=== PATIENT | male | born 1965 | race Caucasian/White ===

== ENCOUNTER 2020-08-02 14:40 | Outpatient (REF) | payer OTHER, SELFPAY ==
[2020-08-02 16:32] LABS: MANUAL DIFF FLAG NO
[2020-08-02 16:36] LABS: Basophils Absolute Auto 0.1 X10*3/uL (0.0-0.2); Basophils Percent Auto 0.7 % (0-2); Eosinophils Absolute Auto 0.1 X10*3/uL (0.0-0.4); Eosinophils Percent Auto 1.6 % (0-4); Hematocrit 45.6 % (42-52); Hemoglobin 15.1 g/dl (14.0-18.0); Imm Gran Abs Auto 0.01 X10*3/uL (0.00-0.03); Imm Gran Pct Auto 0.1 % (0.0-0.4); Lymphocytes Absolute Auto 2.9 X10*3/uL (1.2-4.9); Lymphocytes Percent Auto 37.3 % (20-40); Mean Corpuscular HGB Conc 33.1 g/dl (31.0-36.0); Mean Corpuscular Volume 90.7 fL (80-98); Mean Platelet Volume 9.7 fL (9.4-12.4); Monocytes Absolute Auto 0.7 X10*3/uL (0.1-1.2); Neutrophils Absolute Auto 3.9 X10*3/uL (2.0-8.3); Neutrophils Percent Auto 51.3 % (45-73); Platelet Count 196 X10*3/uL (160-400); Red Blood Count 5.03 X10*6/uL (4.60-5.80); Red Cell Distribution Width 11.9 % (11.0-16.0); White Blood Count 7.7 X10*3/uL (4.8-10.8)
[2020-08-02 16:44] LABS: Estimated Average Glucose 120 mg/dL; Hemoglobin A1c % 5.8 %
[2020-08-02 17:01] LABS: Alanine Aminotransferase 65 U/L (0-40); Albumin Level 4.2 g/dL (3.5-5.0); Alkaline Phosphatase 55 U/L (39-117); Anion Gap 10 (12-20); Aspartate Amino Transferase 46 U/L (5-37); Bilirubin Total 0.6 mg/dL (0.0-1.0); Blood Urea Nitrogen 15 mg/dL (9-16); Calcium 9.2 mg/dL (8.4-10.2); Carbon Dioxide 32 mmol/L (22-29); Chloride 101 mmol/L (96-108); Estimated Glomerular Filt Rate > 60; Glucose Random 70 mg/dL (60-115); Potassium 4.6 mmol/l (3.3-5.1); Sodium 138 mmol/L (135-145); Total Protein 6.8 g/dL (6.5-8.0)
[2020-08-02 17:21] LABS: TSH reflex Free T4 0.95 mIU/mL (0.32-4.0)
== END 2020-08-02 14:41 | disposition home or self-care (01) ==
LOC: HO.HMGCLDS 14:40
PROVIDERS: PCP Hospitalist; Visit Provider Hospitalist
DX: R42 Dizziness and giddiness (principal)
CPT/HCPCS: 36415; 80053; 83036; 84443; 85025

== ENCOUNTER 2021-02-20 07:54 | Outpatient (REF) | payer OTHER, SELFPAY ==
--- NOTE | ~2021-02-20 | XR_ITS ---
EXAMINATION: XR SHOULDER, LEFT CLINICAL INFORMATION: Pain COMPARISON: None TECHNIQUE: Three views of the left shoulder. FINDINGS: Bone alignment is normal. No fracture or dislocation is seen. There are small osteophytes at the glenohumeral joint. There are osteophytes and joint space narrowing at the acromioclavicular joint. There are surgical clips project over the left lower neck. Soft tissues are otherwise unremarkable. 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
== END 2021-02-20 07:55 | disposition home or self-care (01) ==
LOC: HO.HOSX 07:54
PROVIDERS: Visit Provider Orthopaedic Surgery
DX: M75.42 Impingement syndrome of left shoulder (principal)
CPT/HCPCS: 20610; 73030; J1040

== ENCOUNTER 2021-11-08 16:59 | Emergency (ER) | payer OTHER, SELFPAY ==
--- NOTE | ~2021-11-08 | XR_ITS ---
EXAMINATION: LEFT HAND AND WRIST. CLINICAL INFORMATION: Fall. COMPARISON: None TECHNIQUE: 3 views. FINDINGS: No acute fracture. No dislocation. Joint spaces are normal. No soft tissue abnormality. XR/XR hand wrist LT IMPRESSION: Normal left hand and wrist.
--- NOTE | ~2021-11-08 | XR_ITS ---
EXAMINATION: XR SCAPULA, RIGHT CLINICAL INFORMATION: Fall on ice. COMPARISON: None TECHNIQUE: AP and scapular Y views of the right scapula. FINDINGS: No acute fractures or malalignment. Mild osteoarthritis of the right acromioclavicular joint. No unexpected radiopaque foreign bodies. XR/XR scapula RT IMPRESSION: No acute fractures or malalignment.
--- NOTE | ~2021-11-08 | XR_ITS ---
EXAMINATION: XR RIBS, RIGHT CLINICAL INFORMATION: Fall with right-sided rib pain. COMPARISON: None TECHNIQUE: 3 views of the right ribs were obtained. FINDINGS: Normal appearance of the cardiomediastinal silhouette. No focal airspace opacities, pleural effusions or pneumothorax. Indeterminate surgical clips overlying the left lower neck and left lung apex. No evidence of acutely displaced rib fractures. XR/XR ribs RT min 3V w CXR1V IMPRESSION: No acute cardiopulmonary findings. No acutely displaced rib fractures.
[2021-11-08 17:05] VITALS: BP 112/71; PULSE 68; RESP 16; TEMP 36.6; O2SAT 97; BMI 35.3
--- NOTE | 2021-11-08 18:50 | ED_ITS ---
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 Denies symptoms prior to fall. Reports slipped and fell and landed on back, denies head trauma or LOC. Was ambulatory after incident. Denies incontinence/retention, neck pain, vision change/loss, nausea/vomiting, abdominal pain, numbness/tingling, weakness. Adria es taking anticoagulation. complaint: fall Onset (ago): hour(s) Related Data Previous Rx's Medication Instructions Recorded acetaminophen 500 mg tablet 500 mg PO Q6H PRN #20 tab 11/08/21 (Tylenol Extra Strength) cyclobenzaprine 5 mg tablet 5 mg PO Q8H PRN 5 Days #14 tab 11/08/21 lidocaine 5 % topical patch 1 patch TOPICAL DAILY PRN #30 ea 11/08/21 (Lidoderm) MDD remove after 12 hours naproxen 500 mg tablet 500 mg PO BID PRN 10 Days #20 tab 11/08/21 Allergies Allergy/AdvReac Type Severity Reaction Status Date / Time No Known Allergies Allergy Verified 02/20/21 13:50 Review of Systems Review of Systems: Constitutional:No Fever, No Chills, No Fatigue, No Malaise ENT/Mouth: No Hearing loss, No Ear Pain, No sore throat, No Rhinorrhea, No Swall owing Difficulty Eyes: No Eye Pain, No Swelling, No Redness, No Vision Changes Cardiovascular: + Chest Wall Pain, No SOB, No Edema, No Palpitations Respiratory: No Cough, No Dyspnea Gastrointestinal: No Nausea, No Vomiting, No Diarrhea, No Constipation, No Abdominal pain Genitourinary: No Dysuria, No Urinary Frequency, No Hematuria, No Urinary Incontinence/retention, No Urgency, No Flank Pain Musculoskeletal: + joint pain, No Myalgias, + Joint Swelling Skin: No Skin Lesions, No rash Neuro: No Weakness, No Numbness, No Paresthesias, No Loss of Consciousness, No Dizziness, No Headache Yes all other systems are reviewed and are negative Neurologic: Denies Abnormal speech present [facility] Past Medical History Attestation statement: The following information was validated with the patient. 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 Physical Exam Vital Signs: Vital Signs: Last Vital Signs Temp 97.8 F 11/08/21 17:05 Pulse 68 11/08/21 17:05 Resp 16 11/08/21 17:05 BP 112/71 11/08/21 17:05 Pulse Ox 97 11/08/21 17:05 BMI result Body Mass Index 35.3 Const: Other: Appears in pain General: cooperative Orientation/consciousness: patient oriented x3 Limitations: no limitations HENMT: Head: Yes normal to inspection Ears: hearing grossly normal bilaterally General nose exam: Normal external nose present Face and sinus: Yes normal facial exam Eyes: General: appearance normal, both eyes and all related structures EOM: EOMs intact bilaterally Neck: Other: No midline cervical spinous tenderness/double for deformity Neck: Yes normal visual inspection and Yes no meningeal signs Chest: Other: + right-sided anterior lateral chest wall tenderness to palpation reproducing subjective complaint. Right scapular tenderness to palpation Chest palpation & inspection: no crepitus and tenderness Resp: Effort & Inspection: normal respiratory effort and no respiratory distress Auscultation: clear to auscultation bilaterally Cardio: Rate: regular rate Heart sounds: S1 normal heart sound present and S2 normal heart sound present GI: Inspection: Yes normal to inspection Palpation (GI): Soft to palpation, nontender, no guarding and not rigid Back/Spine/Pelvis: Other: No midline thoracic/lumbar spinous tenderness/step- off or deformity Skin: Rashes: no rashes Wounds: no wounds Neuro: General: patient oriented x3, gait normal, tone normal, moves all extremities, no meningeal signs, no focal motor deficits and CN's II-XI intact bilaterally Cognition (Neuro): normal cognition Speech: No Abnormal speech present Gait exam (Neuro): Normal gait present Motor exam (neuro): 5/5 motor strength present throughout Extrem: Other: Left wrist with mild tenderness. No snuffbox tenderness to palpation. Full range of motion intact. Left hand nontender. Full range of motion intact. Eapguv-du-fssjt opposition intact. Neurovascular intact General: Yes normal to inspection Course Course Course Narrative: -1909--XR ribs RT min 3V w CXR1V IMPRESSION: No acute cardiopulmonary findings. No acutely displaced rib fractures. XR scapula RT IMPRESSION: No acute fractures or malalignment. XR hand wrist LT IMPRESSION: Normal left hand and wrist.? >> results discussed with patient including recent signs and symptoms and strict return precautions. 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 On exam vital signs stable, NAD/nontoxic, physical exam as above. Concern for rib fracture/contusion vs wrist sprain/fracture vs back strain/MSK pain. Low concern for cauda equina/cord compression, or epidural abscess Plan: X-rays, pain control Differential Diagnosis Differential diagnosis: Likely fracture Medical Records Attestation: I reviewed the patient's medical records. Lab Data Attestation: I reviewed the patient's lab results. Discharge Plan Discharge Clinical Impression: Back pain, Pain of right scapula, Acute wrist pain, Fall Patient Disposition: Home, Self-Care Instructions: Acute Low Back Pain (ED) Additional Instructions: your x-rays were unremarkable Your pain is likely musculoskeletal Flexeril is a muscle relaxer, take at night as it makes you drowsy, do not drive, drink alcohol, or operate machinery while taking it Naproxen as an anti-inflammatory / pain medication, take with food Lidoderm patches are numbing patches, apply to painful area In addition take Tylenol at home If symptoms persist or worsen, pain becomes unbearable, you developed urinary retention or incontinence, or weakness return to the ED Prescriptions: New acetaminophen [Tylenol Extra Strength] 500 mg tablet 500 mg PO Q6H PRN (Reason: pain or fever) Qty: 20 RF: 0 lidocaine [Lidoderm] 5 % adhesive patch,medicated 1 patch topical DAILY MDD remove after 12 hours PRN (Reason: pain) Qty: 30 RF: 0 naproxen 500 mg tablet 500 mg PO BID PRN (Reason: pain) 10 Days Qty: 20 RF: 0 cyclobenzaprine 5 mg tablet 5 mg PO Q8H PRN (Reason: pain (scale score 7-10)) 5 Days Qty: 14 RF: 0 Referrals: Neville Boyce [Primary Care Provider] - 5 days
[2021-11-08] MEDS: Cyclobenzaprine HCl 10 MG TABLET PO (19:20)
[2021-11-08] MEDS: Acetaminophen 325 MG TABLET 650 MG PO (19:20)
[2021-11-08] MEDS: Ketorolac Tromethamine 60 MG/2 ML VIAL IM (19:21)
== END 2021-11-08 19:55 | disposition home or self-care (01) ==
PROVIDERS: Emergency Provider Internal Medicine; PCP Hospitalist
DX: Z04.3 Encounter for examination and observation following other accident (principal); M54.6 Pain in thoracic spine; M25.532 Pain in left wrist; M25.512 Pain in left shoulder; R07.81 Pleurodynia
CPT/HCPCS: 71101; 73010; 73110; 73130; 96372; 99284; J1885

== ENCOUNTER 2022-01-02 08:00 | Outpatient (RCR) | payer OTHER, SELFPAY | END 2022-01-30 08:03 | disposition home or self-care (01) | LOC: HO.PTCHIC 08:00 | PROVIDERS: PCP Hospitalist; Visit Provider Nurse Practitioner Family | DX: M54.6 Pain in thoracic spine (principal) | CPT/HCPCS: 97014; 97110; 97140; 97162 ==

== ENCOUNTER 2022-01-11 10:43 | Outpatient (REF) | payer OTHER, SELFPAY ==
--- NOTE | ~2022-01-11 | XR_ITS ---
EXAMINATION: XR FOOT, RIGHT XR FOOT, LEFT CLINICAL INFORMATION: Right foot pain. Left foot pain. COMPARISON: None TECHNIQUE: AP, oblique, and lateral views of the right and left foot. FINDINGS: RIGHT FOOT: No acute fracture or dislocation. Small talonavicular marginal osteophytes. Along the medial aspect of the second metatarsal head there is a smooth, corticated defect measuring 1.0 cm in craniocaudal dimension, which may represent normal variation. Small plantar and dorsal calcaneal enthesophytes. LEFT FOOT: No acute fracture or dislocation. No osseous erosion. Small plantar and dorsal calcaneal enthesophytes. Bipartite tibial hallux sesamoid. Mild joint space narrowing with small marginal osteophytes at the hallux sesamoids. XR/XR foot RT min 3V IMPRESSION: Right foot: No acute osseous abnormality. Mild talonavicular osteoarthritis. Small plantar and dorsal calcaneal spurs. Left foot: No acute osseous abnormality. Mild degenerative arthritis at the hallux sesamoids. Small plantar and dorsal calcaneal spurs.
--- NOTE | ~2022-01-11 | XR_ITS ---
EXAMINATION: XR FOOT, RIGHT XR FOOT, LEFT CLINICAL INFORMATION: Right foot pain. Left foot pain. COMPARISON: None TECHNIQUE: AP, oblique, and lateral views of the right and left foot. FINDINGS: RIGHT FOOT: No acute fracture or dislocation. Small talonavicular marginal osteophytes. Along the medial aspect of the second metatarsal head there is a smooth, corticated defect measuring 1.0 cm in craniocaudal dimension, which may represent normal variation. Small plantar and dorsal calcaneal enthesophytes. LEFT FOOT: No acute fracture or dislocation. No osseous erosion. Small plantar and dorsal calcaneal enthesophytes. Bipartite tibial hallux sesamoid. Mild joint space narrowing with small marginal osteophytes at the hallux sesamoids. XR/XR foot LT min 3V IMPRESSION: Right foot: No acute osseous abnormality. Mild talonavicular osteoarthritis. Small plantar and dorsal calcaneal spurs. Left foot: No acute osseous abnormality. Mild degenerative arthritis at the hallux sesamoids. Small plantar and dorsal calcaneal spurs.
== END 2022-01-11 10:44 | disposition home or self-care (01) ==
LOC: HO.HMGCX 10:43
PROVIDERS: Visit Provider Internal Medicine
DX: M79.671 Pain in right foot (principal); M79.672 Pain in left foot
CPT/HCPCS: 73630

== ENCOUNTER 2022-03-12 13:38 | Outpatient (REF) | payer OTHER, SELFPAY ==
[2022-03-12 15:51] LABS: Hematocrit 41.7 % (42.0-52.0); Mean Corpuscular HGB Conc 33.6 g/dl (31.0-36.0); Mean Corpuscular Hemoglobin 30.3 pg (27.0-33.0); Mean Corpuscular Volume 90.3 fL (80.0-98.0); Mean Platelet Volume 9.5 fL (9.4-12.4); Platelet Count 168 X10*3/uL (160-400); Red Blood Count 4.62 X10*6/uL (4.60-5.80); Red Cell Distribution Width 12.4 % (11.0-16.0); White Blood Count 7.8 X10*3/uL (4.8-10.8)
[2022-03-12 16:42] LABS: Alanine Aminotransferase 78 U/L (0-40); Albumin Level 4.1 g/dL (3.5-5.0); Alkaline Phosphatase 58 U/L (39-117); Anion Gap 12 (12-20); Aspartate Amino Transferase 49 U/L (5-37); Bilirubin Total 0.6 mg/dL (0.0-1.0); Blood Urea Nitrogen 20 mg/dL (9-16); Calcium 9.6 mg/dL (8.4-10.2); Carbon Dioxide 28 mmol/L (22-29); Chloride 108 mmol/L (96-108); Estimated Glomerular Filt Rate > 60; Glucose Random 74 mg/dL (60-115); Potassium 4.8 mmol/L (3.3-5.1); Sodium 143 mmol/L (135-145); Total Protein 6.8 g/dL (6.5-8.0)
== END 2022-03-12 13:39 | disposition home or self-care (01) ==
LOC: HO.LAB 13:38
PROVIDERS: Visit Provider Nurse Practitioner Family
DX: K75.81 Nonalcoholic steatohepatitis (NASH) (principal)
CPT/HCPCS: 36415; 80053; 85027

== ENCOUNTER 2022-08-23 12:56 | Outpatient (REF) | payer OTHER, SELFPAY ==
[2022-08-23 13:57] LABS: MANUAL DIFF FLAG NO
[2022-08-23 14:04] LABS: Basophils Percent Auto 0.5 % (0-2); Eosinophils Absolute Auto 0.1 X10*3/uL (0.0-0.4); Eosinophils Percent Auto 1.4 % (0-4); Hematocrit 41.4 % (42.0-52.0); Imm Gran Abs Auto 0.02 X10*3/uL (0.00-0.03); Imm Gran Pct Auto 0.3 % (0.0-0.4); Lymphocytes Absolute Auto 2.7 X10*3/uL (1.2-4.9); Lymphocytes Percent Auto 43.1 % (20-40); Mean Corpuscular HGB Conc 33.8 g/dl (31.0-36.0); Mean Corpuscular Hemoglobin 30.2 pg (27.0-33.0); Mean Corpuscular Volume 89.4 fL (80.0-98.0); Mean Platelet Volume 9.7 fL (9.4-12.4); Monocytes Absolute Auto 0.5 X10*3/uL (0.1-1.2); Monocytes Percent Auto 7.6 % (2-11); Neutrophils Percent Auto 47.1 % (45-73); Platelet Count 181 X10*3/uL (160-400); Red Blood Count 4.63 X10*6/uL (4.60-5.80); Red Cell Distribution Width 11.8 % (11.0-16.0); White Blood Count 6.3 X10*3/uL (4.8-10.8)
[2022-08-23 14:27] LABS: Alanine Aminotransferase 54 U/L (0-40); Albumin Level 4.1 g/dL (3.5-5.0); Alkaline Phosphatase 57 U/L (39-117); Anion Gap 15 (12-20); Aspartate Amino Transferase 41 U/L (5-37); Bilirubin Direct 0.2 mg/dL (0.0-0.5); Bilirubin Total 0.6 mg/dL (0.0-1.0); Blood Urea Nitrogen 17 mg/dL (9-16); Calcium 9.1 mg/dL (8.4-10.2); Carbon Dioxide 23 mmol/L (22-29); Chloride 108 mmol/L (96-108); Estimated Glomerular Filt Rate > 60; Glucose Random 75 mg/dL (60-115); Potassium 4.3 mmol/L (3.3-5.1); Sodium 142 mmol/L (135-145); Total Protein 6.5 g/dL (6.5-8.0)
[2022-08-23 14:35] LABS: TSH reflex Free T4 0.48 uIU/mL (0.32-4.0)
[2022-08-23 14:48] LABS: Vitamin B12 351 pg/mL (200-900)
[2022-08-23 15:05] LABS: Estimated Average Glucose 120 mg/dL; Hemoglobin A1c % 5.8 %
== END 2022-08-23 12:57 | disposition home or self-care (01) ==
LOC: HO.HMGCLDS 12:56
PROVIDERS: PCP Nurse Practitioner Family; Visit Provider Nurse Practitioner Family
DX: R53.83 Other fatigue (principal); K75.81 Nonalcoholic steatohepatitis (NASH); E66.9 Obesity, unspecified
CPT/HCPCS: 36415; 80048; 80076; 82607; 83036; 84443; 85025

== ENCOUNTER 2022-08-27 08:19 | Day surgery (SDC) | payer OTHER, SELFPAY ==
[2022-08-21 09:40] VITALS: BMI 36.4
--- NOTE | 2022-08-26 11:53 | HO.ANESPROP2 ---
Documented by User: Yola Gaytan NP 08/26/22 11:53 HPI - Anesthesia Eval Consult details Narrative: 56yo M for Colonoscopy [facility] Active Problems Active Problems: All Active Problems (Updated 03/12/22 @ 14:33 by STEPHANIE Vázquez) Rotator cuff impingement syndrome of left shoulder (Acute) Past Medical History Medical History Aneurysm Nonalcoholic steatohepatitis (ROOT) Surgical History Surgical History History of knee replacement Social History Social History Alcohol intake: current Alcohol intake frequency: holidays/special occasions only Patient Tobacco Use Status: Never used Tobacco Are you DNR?: No Advance Directives: No Advance Directives Information Provided: Yes Nutrition Risks: No Nutritional Risk Current occupational status: employed 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, 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 Meds Allergies Allergy/AdvReac Type Severity Reaction Status Date / Time No Known Allergies Allergy Verified 03/12/22 13:56 Home Medications Medication Instructions Recorded Confirmed Last Taken Type magnesium 1 tab PO DAILY 08/27/22 08/27/22 08/26/22 History multivitamin 1 tab PO DAILY 08/27/22 08/27/22 08/26/22 History Exam Exam Date and Time: August 26, 2022 1153 Height,Weight and Vital Signs: Height 6 ft 2 in Weight 128.82 kg Assessment and Plan Assessment Anesthesia Assessment: Chart Reviewed Documented by User: Racquel Staton MD 08/27/22 09:06 [facility] Active Problems Active Problems: All Active Problems (Updated 03/12/22 @ 14:33 by STEPHANIE Vázquez) Rotator cuff impingement syndrome of left shoulder (Acute) DICK USES CPAP nightly Past Medical History Medical History Aneurysm Nonalcoholic steatohepatitis (ROOT) Surgical History Surgical History History of knee replacement History of Problems with Anesthesia: No Social History Social History Alcohol intake: current Alcohol intake frequency: holidays/special occasions only Patient Tobacco Use Status: Never used Tobacco Are you DNR?: No Advance Directives: No Advance Directives Information Provided: Yes Nutrition Risks: No Nutritional Risk Current occupational status: employed 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, 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 Meds Allergies Allergy/AdvReac Type Severity Reaction Status Date / Time No Known Allergies Allergy Verified 03/12/22 13:56 Home Medications Medication Instructions Recorded Confirmed Last Taken Type magnesium 1 tab PO DAILY 08/27/22 08/27/22 08/26/22 History multivitamin 1 tab PO DAILY 08/27/22 08/27/22 08/26/22 History Exam Airway Mallampati Class: III TM Dist: >3cm Neck ROM: Full Loose/Missing/Broken Teeth: No Heart: RRR Lungs: CTA Assessment and Plan Assessment Anesthesia Assessment: Anesthesia Plan Discussed Final Anesthetic Review History of Problems with Anesthesia: No NPO: Yes ASA Class: III Final Preanesthetic Review: Meds/Allgs Chart Reviewed, Consent Obtained/Reviewed and Anes Risks/Benef Reviewed Patient Risk: Intermediate Procedure Risk: Low Anesthetic Plan Anesthetic Plan: MAC: Disposition: Standard PACU
[2022-08-27 08:36] VITALS: BP 149/77; PULSE 62; RESP 19; TEMP 36.6; O2SAT 97
--- NOTE | 2022-08-27 08:49 | MHC.SHP ---
Pre-Procedural Eval Section A Date of Service: 08/27/22 Section B Chief Complaint: screening Details of Present Illness: FH of polyps Relevant Family History (Specify if Yes): Yes Relevant Social History: None Present Medications: see Short Stay Collaborative assessment Medical History: Significant History (Nonalcoholic steatohepatitis (ROOT)) History of Previous Operations: Relevant previous surgery/procedure and date(s) (History of knee replacement) Allergies: Allergies Allergy/AdvReac Type Severity Reaction Status Date / Time No Known Allergies Allergy Verified 03/12/22 13:56 Review of Systems Sugical H&P ROS: Negative: Constitution, Cardiovascular, Respiratory, Neurological, Psychiatric, Hem-Onc, Allergic/Immunologic, Gastrointestinal, Genitourinary, Musculoskeletal, Integumentary, Endocrine and Eyes/Ears/Nose/Throat Exam Surgical H&P Exam: Normal: HEENT, Normal: Heart, Normal: Lungs, Normal: Extremities, Normal: Abdomen, Normal: Skin and Normal: Neurological Plan Diagnosis/Plan: Unchanged I have reviewed the history and physical and performed a pertinent physical examination on my patient. No changes have occurred unless specified.
[2022-08-27] MEDS: Lactated Ringers 1,000 ML 100 ML IVCONT (08:52)
--- NOTE | 2022-08-27 09:50 | W.PM.OPN ---
Operative Note Operative Note Date of Service: 08/27/22 Narrative: Operative Information Procedure Description: Colonoscopy Indication: screening, FH of polyps Anesthesia: MAC COLONOSCOPY Instrument: Olympus variable stiffness adult scope 190L Colonoscopy Monitoring: Vital signs and clinical assessment, continuous EKG monitoring, Pulse oximetry, Carbon Dioxide monitoring and blood pressure monitoring were done throughout the procedure. Colon withdrawal time was 6 minutes. Procedure: The patient was placed in the left lateral decubitis position and pre-procedure medications were administered. After a digital rectal examination of the ano-rectum, the video colonoscope was inserted into the rectum and advanced through the colon to the cecum/TI. The colonoscope was slowly withdrawn in a retrograde panoramic fashion and the colon mucosa was carefully examined including a retroflexed view of the rectum. Findings and interventions are described below. Procedure Difficulty: easy Findings: Terminal Ileum-normal Cecum:normal Ascending Colon: normal Transverse Colon -normal Descending Colon:normal Sigmoid Colon: moderate diverticulosis with some inverted tics Rectum: Retroflexion with small internal hemorrhoids, grade I Anorectum - normal Colon preparation: Josephine Bowel Preparation Scale Right colon; 2 Transverse colon: 2 Left colon; 3 (0 = Unprepared colon segment with mucosa not seen due to solid stool that cannot be cleared. 1 = Portion of mucosa of the colon segment seen, but other areas of the colon segment not well seen due to staining, residual stool and/or opaque liquid. 2 = Minor amount of residual staining, small fragments of stool and/or opaque liquid, but mucosa of colon segment seen well. 3 = Entire mucosa of colon segment seen well with no residual staining, small fragments of stool or opaque liquid) Impression and Post Procedure Diagnosis: internal hemorrhoids diverticular disease Plan: High fiber diet leaflet Avoid straining at stool, epsom salts and sitz bath, anusol supps or cream Repeat Colonoscopy in 5 years due to FH or earlier if clinically indicated Above findings were reviewed with the patient and relevant handouts were provided if indicated.
[2022-08-27 09:55] VITALS: BP 138/65; PULSE 66; RESP 12; TEMP 36.3; O2SAT 96
[2022-08-27 10:00] VITALS: BP 136/65; PULSE 56; RESP 12; O2SAT 95
[2022-08-27 10:05] VITALS: BP 139/72; PULSE 53; RESP 13; O2SAT 95
[2022-08-27 10:10] VITALS: BP 140/79; PULSE 66; RESP 16; O2SAT 96
[2022-08-27 10:21] VITALS: BP 140/80; PULSE 62; RESP 18; O2SAT 96
== END 2022-08-27 10:40 | disposition home or self-care (01) ==
PROVIDERS: Visit Provider Internal Medicine Gastroenterology
PROC: 0DJD8ZZ Inspection of Lower Intestinal Tract, Via Natural or Artificial Opening Endoscopic (ICD-10-PCS; CPT 45378; principal; 2022-08-27 09:40)
DX: Z12.11 Encounter for screening for malignant neoplasm of colon (principal); Z83.71 Family history of colonic polyps; K57.30 Diverticulosis of large intestine without perforation or abscess without bleeding; K64.0 First degree hemorrhoids; K75.81 Nonalcoholic steatohepatitis (NASH)
CPT/HCPCS: 45378

== ENCOUNTER 2022-09-18 11:34 | Outpatient (REF) | payer OTHER, SELFPAY ==
[2022-09-18 12:32] LABS: Prothrombin Time 11.7 SEC (10.0-13.1)
[2022-09-18 13:41] LABS: Gamma Glutamyl Transpeptidase 47 U/L (11-51)
[2022-09-18 13:42] LABS: Bilirubin Direct 0.3 mg/dL (0.0-0.5); Bilirubin Total 0.8 mg/dL (0.0-1.0); C Reactive Protein 0.11 mg/dL (< or = 0.50); Ferritin 892 ng/mL (20-250); Iron 121 mcg/dL (45-160); Percent Iron Saturation 44 % (15-50); Total Iron Binding Capacity 276 mcg/dL (228-428); Unsaturated Iron Binding 155 ug/dL
[2022-09-19 09:30] LABS: HBc Num1 0.07 S/CO (0.00-0.79); HBsAGNum1 0.32 S/CO (0.00-0.99); HIV AB/AG Nonreactive (Nonreactive); HIV Num 1 0.06 S/CO (0.00-0.99); Hepatitis A Antibody IgM 0.12 Index (0-0.79); Hepatitis B Core Antibody Nonreactive (Nonreactive); Hepatitis B Surface Antigen Negative (Negative); ~HepC Num1 0.05 S/CO (0.00-0.79); ~Hepatitis A Antibody IgM Nonreactive (Nonreactive); ~Hepatitis B Surface Antibody REACTIVE (Nonreactive); ~Hepatitis C Antibody Nonreactive (Nonreactive)
[2022-09-19 14:23] LABS: Ceruloplasmin 21 mg/dL (18-36)
[2022-09-20 12:19] LABS: Alpha Fetoprotein 3.3 ng/mL (<6.1)
[2022-09-23 06:33] LABS: Smooth Muscle Antibody <20 U (<20)
[2022-09-23 11:54] LABS: Mitochondrial Antibodies NEGATIVE (NEGATIVE)
== END 2022-09-18 11:35 | disposition home or self-care (01) ==
LOC: HO.LAB 11:34
PROVIDERS: PCP Hospitalist; Visit Provider Nurse Practitioner Family
DX: R10.9 Unspecified abdominal pain (principal); R17 Unspecified jaundice; K92.2 Gastrointestinal hemorrhage, unspecified; K58.9 Irritable bowel syndrome, unspecified; R74.8 Abnormal levels of other serum enzymes; R79.89 Other specified abnormal findings of blood chemistry
CPT/HCPCS: 36415; 82105; 82247; 82248; 82390; 82728; 82977; 83540; 85610; 86015; 86140; 86255; 86256; 86704; 86706; 86709; 86803; 87340; 87389

== ENCOUNTER 2022-10-01 14:08 | Outpatient (REF) | payer OTHER, SELFPAY | END 2022-10-01 14:09 | disposition home or self-care (01) | LOC: HO.HMGCLDS 14:08 | PROVIDERS: Visit Provider Nurse Practitioner Family | DX: R79.89 Other specified abnormal findings of blood chemistry (principal) | CPT/HCPCS: 36415; 81256 ==

== ENCOUNTER 2022-10-30 08:21 | Outpatient (REF) | payer OTHER, SELFPAY ==
--- NOTE | ~2022-10-30 | US_ITS ---
EXAMINATION: US COMPLETE ABDOMEN WITH LIVER ELASTOGRAPHY CLINICAL INFORMATION: Elevated LFTs COMPARISON: None. TECHNIQUE: Real-time imaging of the abdominal viscera. Noninvasive ultrasound liver fibrosis assessment is performed using Paul ElastPQ point quantification shear wave elastography (2D-SWE) with a C5-2 MHz transducer. Multiple elastography samples are obtained. Limited imaging due to body habitus and bowel gas. FINDINGS: PANCREAS: Normal. The visualized pancreatic head and body are normal in appearance. The remainder of the pancreas is obscured from visualization by the overlying bowel gas. ABDOMINAL AORTA: The proximal, middle, and distal aortic segments are normal in caliber. INFERIOR VENA CAVA: Visualized portions are normal. LIVER: Diffuse increased echogenicity. The liver demonstrates normal size, contour and echogenicity. No focal lesion or intrahepatic biliary duct dilatation. The right lobe measures 17.3 cm in length. The left lobe measures 10.4 cm in length. Portal flow is hepatopedal Shear wave liver elastography median stiffness is 1.75 m/s (reference: normal median stiffness is 1.3 m/s or less). IQR/median stiffness to assess sampling precision is 0.07 (reference: good quality data set is IQR/median stiffness of 0.15 or less). GALLBLADDER: Normal. The gallbladder is physiologically distended without evidence of stones, sludge, polyps, wall thickening or pericholecystic fluid. COMMON BILE DUCT: Normal in caliber measuring 0.5 cm in diameter. RIGHT KIDNEY: Small 10 mm parapelvic cyst. No hydronephrosis. No renal calculi or focal parenchymal lesions. The kidney measures 11.3 cm in maximum dimension. LEFT KIDNEY: Probable minor pelvic fullness. No hydronephrosis. No renal calculi or focal parenchymal lesions. The kidney measures 11.7 cm in maximum dimension. SPLEEN: Normal. The spleen measures 11.3 cm in maximum dimension. FREE FLUID: None. US/US abdomen comp w elastography IMPRESSION: 1. Changes of diffuse hepatic steatosis. 2. Liver elastography: Measurements are suggestive of compensated advanced chronic liver disease but need further test for confirmation. REFERENCE: Society of Radiologists in Ultrasound Liver Stiffness Thresholds (2020): LIVER STIFFNESS THRESHOLDS: *Liver Stiffness equal or less than 1.3 m/s: High probability of being normal. *Liver Stiffness less than 1.7 m/s: In the absence of other known clinical signs, rules out compensated advanced chronic liver disease. *Liver Stiffness 1.7-2.1 m/s: Suggestive of compensated advanced chronic liver disease but need further test for confirmation. *Liver Stiffness over 2.1 m/s: Rules in compensated advanced chronic liver disease. *Liver Stiffness over 2.4 m/s: Suggestive of clinically significant portal hypertension. QUALITY OF DATA SET: *IQR/Median value equal or less than 0.15 implies a quality data set. *IQR/Median value over 0.15 implies a poor quality data set. SIGNIFICANT CHANGE FROM PRIOR EXAM: Significant change if liver stiffness measurement is 10% or greater from prior exam. OTHER CONSIDERATIONS: The stage of liver fibrosis may be overestimated in the setting of acute hepatitis, liver inflammation, elevated liver function tests, hepatic vascular congestion, obstructive cholestasis, non-fasting state, and infiltrative diseases such as amyloidosis and lymphoma. In some patients with NAFLD, the liver stiffness thresholds for compensated advanced chronic liver disease may be lower. In causes other than viral hepatitis and NAFLD, liver stiffness thresholds are not well established.
== END 2022-10-30 08:22 | disposition home or self-care (01) ==
LOC: HO.US 08:21
PROVIDERS: PCP Hospitalist; Visit Provider Nurse Practitioner Family
DX: R79.89 Other specified abnormal findings of blood chemistry (principal)
CPT/HCPCS: 76705; 76981

== ENCOUNTER 2022-12-24 09:14 | Outpatient (REF) | payer OTHER, SELFPAY | END 2022-12-24 09:15 | disposition home or self-care (01) | LOC: HO.LNP 09:14 | PROVIDERS: PCP Hospitalist; Visit Provider Surgery | DX: L72.3 Sebaceous cyst (principal); L08.9 Local infection of the skin and subcutaneous tissue, unspecified | CPT/HCPCS: 10060; 87070; 87077; 87186; 87205 ==

== ENCOUNTER → 2022-12-25 12:40 | Outpatient (BNVA) | payer OTHER, SELFPAY | PROVIDERS: PCP Hospitalist; Visit Provider Surgery | DX: Z13.89 Encounter for screening for other disorder (principal) ==

== ENCOUNTER → 2022-12-26 12:56 | Outpatient (BNVA) | payer OTHER, SELFPAY | PROVIDERS: PCP Hospitalist; Visit Provider Surgery | DX: Z13.89 Encounter for screening for other disorder (principal) ==

== ENCOUNTER → 2022-12-31 11:35 | Outpatient (BNVA) | payer OTHER, SELFPAY | PROVIDERS: PCP Hospitalist; Referring Provider Hospitalist; Visit Provider Surgery | DX: Z13.89 Encounter for screening for other disorder (principal) ==

== ENCOUNTER → 2023-01-15 11:02 | Outpatient (BNVA) | payer OTHER, SELFPAY | PROVIDERS: PCP Hospitalist; Visit Provider Nurse Practitioner Family | DX: Z13.89 Encounter for screening for other disorder (principal) ==

== ENCOUNTER → 2023-01-29 12:56 | Outpatient (BNVA) | payer OTHER, SELFPAY | PROVIDERS: PCP Hospitalist; Visit Provider Surgery | DX: Z13.89 Encounter for screening for other disorder (principal) ==

== ENCOUNTER 2023-02-01 07:31 | Outpatient (REF) | payer OTHER, SELFPAY ==
[2023-02-01 12:14] LABS: Alanine Aminotransferase 45 U/L (0-40); Alkaline Phosphatase 61 U/L (39-117); Anion Gap 12 (12-20); Aspartate Amino Transferase 29 U/L (5-37); Bilirubin Total 0.6 mg/dL (0.0-1.0); Blood Urea Nitrogen 19 mg/dL (9-16); Carbon Dioxide 24 mmol/L (22-29); Chloride 110 mmol/L (96-108); Cholesterol 172 mg/dL; Estimated Glomerular Filt Rate > 60; Glucose Fasting 113 mg/dL (60-99); HDL Cholesterol 44 mg/dL; LDL Cholesterol Calculated 116 mg/dl; Potassium 4.3 mmol/L (3.3-5.1); Sodium 142 mmol/L (135-145); Total Protein 6.1 g/dL (6.5-8.0); Triglycerides 63 mg/dL
== END 2023-02-01 07:32 | disposition home or self-care (01) ==
LOC: HO.HMGCLDS 07:31
PROVIDERS: PCP Nurse Practitioner Family; Visit Provider Nurse Practitioner Family
DX: R74.8 Abnormal levels of other serum enzymes (principal)
CPT/HCPCS: 36415; 80053; 80061

== ENCOUNTER 2023-02-17 09:22 | Day surgery (SDC) | payer OTHER, SELFPAY ==
[2023-02-12 15:22] VITALS: BMI 36.7
--- NOTE | 2023-02-14 09:45 | P.CONAN_ITS ---
Documented by User: Yola Gaytan NP 02/14/23 09:50 HPI - Anesthesia Eval Consult details Narrative: 57yo M for Left Excision upper back Mass s/p colo 08/2022 with MAC PMFSH Active Problems Active Problems: All Active Problems (Updated 02/12/23 @ 15:17 by Cristy Wong, RN) Rotator cuff impingement syndrome of left shoulder (Acute) Infected sebaceous cyst (Acute) Transaminitis (Acute) Diverticulosis (Acute) Past Medical History Medical History (Updated 02/12/23 @ 15:17 by Cristy Wong RN) Aneurysm Diverticulosis Inflamed sebaceous cyst (12/24/22) Nonalcoholic steatohepatitis (ROOT) Obesity DICK on CPAP Transaminitis Surgical History Surgical History (Updated 02/12/23 @ 15:17 by Cristy Wong RN) History of appendectomy History of knee replacement History of repair of right rotator cuff History of resection of rib Hx of colonoscopy History of Problems with Anesthesia: No Social History Social History Are you a primary home health care case manager to a significant other at home: No Do you presently have visiting nurse or other home services: No Alcohol intake: current Alcohol intake frequency: holidays/special occasions only Patient Tobacco Use Status: Never used Tobacco Use of substances other than those prescribed or required for medical reasons: No Have you been hit, kicked, punched, or otherwise hurt by someone within the past year? 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 Meds Allergies Allergy/AdvReac Type Severity Reaction Status Date / Time No Known Allergies Allergy Verified 02/12/23 15:19 Home Medications Medication Instructions Recorded Confirmed Last Taken Type magnesium 1 tab PO DAILY 08/27/22 02/12/23 08/26/22 History multivitamin 1 tab PO DAILY 08/27/22 02/12/23 08/26/22 History Exam Exam Date and Time: February 14, 2023 0945 Height,Weight and Vital Signs: Height 6 ft 2 in Weight 129.7 kg Pertinent Lab Results Pertinent Lab Results: Laboratory Tests 08/23/22 02/01/23 13:03 07:40 WBC 6.3 Hgb 14.0 Hct 41.4 L Plt Count 181 Sodium 142 Potassium 4.3 Chloride 110 H Carbon Dioxide 24 BUN 19 H Creatinine 0.90 Assessment and Plan Assessment Anesthesia Assessment: Chart Reviewed Final Anesthetic Review History of Problems with Anesthesia: No Documented by User: Alma Rosa Huerta MD 02/17/23 11:22 [facility] Past Medical History Medical History (Updated 02/12/23 @ 15:17 by Cristy Wong, RN) Aneurysm Diverticulosis Inflamed sebaceous cyst (12/24/22) Nonalcoholic steatohepatitis (ROOT) Obesity DICK on CPAP Transaminitis Family History Family history of problems with anesthesia: No Surgical History Surgical History (Updated 02/12/23 @ 15:17 by Cristy Wong, RN) History of appendectomy History of knee replacement History of repair of right rotator cuff History of resection of rib Hx of colonoscopy Social History Social History Are you a primary home health care case manager to a significant other at home: No Do you presently have visiting nurse or other home services: No Alcohol intake: current Alcohol intake frequency: holidays/special occasions only Patient Tobacco Use Status: Never used Tobacco Use of substances other than those prescribed or required for medical reasons: No Have you been hit, kicked, punched, or otherwise hurt by someone within the past year? 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 Meds Allergies Allergy/AdvReac Type Severity Reaction Status Date / Time No Known Allergies Allergy Verified 02/12/23 15:19 Home Medications Medication Instructions Recorded Confirmed Last Taken Type magnesium 1 tab PO DAILY 08/27/22 02/12/23 08/26/22 History multivitamin 1 tab PO DAILY 08/27/22 02/12/23 08/26/22 History Exam Airway Mallampati Class: II (multiple caps, front top imp,ant) TM Dist: >3cm Neck ROM: Full Heart: rrr Lungs: cts Assessment and Plan Assessment Anesthesia Assessment: Anesthesia Plan Discussed Final Anesthetic Review Family History of Problems with Anesthesia: No NPO: Yes ASA Class: III Final Preanesthetic Review: No Changes in Pt Med Stat, Meds/Allgs Chart Reviewed and Consent Obtained/Reviewed Patient Risk: Intermediate Procedure Risk: Intermediate Anesthetic Plan Anesthetic Plan: MAC: Disposition: Standard PACU
--- NOTE | 2023-02-17 06:54 | MHC.SHP ---
Pre-Procedural Eval Section A Date of Service: 02/17/23 The patient is an INPATIENT: No Changes since office visit: No Cold of Flu in the past 2 weeks, No New Medical Problems, No Changes in Medication and No Patient answered all questions The History & Physical has been completed within 30 days and I have reviewed it.: Yes Section B Chief Complaint: Sebaceous cyst,Local infection of the skin Allergies: Allergies Allergy/AdvReac Type Severity Reaction Status Date / Time No Known Allergies Allergy Verified 02/12/23 15:19 Plan I have reviewed the history and physical and performed a pertinent physical examination on my patient. No changes have occurred unless specified. Time Spent With Patient Time: Total time managing care of this patient today ____ minutes.
[2023-02-17 09:53] VITALS: BP 126/77; PULSE 54; RESP 18; TEMP 36.2; O2SAT 98
[2023-02-17 09:54] VITALS: BMI 35.9
[2023-02-17] MEDS: Lactated Ringers 1,000 ML 100 ML IVCONT (10:48)
--- NOTE | 2023-02-17 11:51 | W.PM.OPN ---
Operative Note Operative Note Date of Service: 02/17/23 Narrative: Preoperative diagnosis: [] Left upper back sebaceous cyst Postop diagnosis: [] Same Procedure [] excision left upper back sebaceous cyst Surgeon: [] Faisal Rough Planer Tender: [] slim Simms Type of Anesthesia: [] MAC Indication for surgery: [] Patient is status post I&D of a massive left upper back infected sebaceous cyst several weeks ago. Now presents for elective excision. Final specimen measured approximately 6 x 3 cm. Findings: [] Patient brought to the operating room, placed on the operative table in supine position, after adequate level of MAC anesthesia was induced, patient was placed in the right lateral decubitus position. Left upper back was prepped and draped in usual sterile fashion. After 1% lidocaine and 0.5 bupivacaine infiltration, a transverse bi- elliptical incision was made around the epidermal inclusion cyst in question and carried down through skin, subcutaneous tissue, and undermined using electro Bovie. Specimen sent to pathology. Wound was irrigated, secured hemostasis, and closed using interrupted inverted deep dermal 3-0 Vicryl sutures followed by running subcuticular 4-0 Vicryl suture. Steri-Strips and sterile dressings were applied. Sponge, needle, and instrument counts were reported to be correct. Patient tolerated the procedure well and emerged from anesthesia stable condition. EBL minimal
[2023-02-17 12:00] VITALS: BP 104/64; PULSE 72; RESP 16; TEMP 36.6; O2SAT 96
[2023-02-17 12:15] VITALS: BP 103/60; PULSE 59; RESP 16; TEMP 36.4; O2SAT 96
== END 2023-02-17 12:59 | disposition home or self-care (01) ==
PROVIDERS: PCP Nurse Practitioner Family; Visit Provider Surgery
PROC: (CPT 11406; principal; 2023-02-17 12:20)
DX: L72.3 Sebaceous cyst (principal); L08.9 Local infection of the skin and subcutaneous tissue, unspecified
CPT/HCPCS: 11406; 88304; 88305; J0690; J2250; J2795; J3010

== ENCOUNTER 2023-02-25 10:51 | Outpatient (REF) | payer OTHER, SELFPAY | END 2023-02-25 10:52 | disposition home or self-care (01) | LOC: HO.LNP 10:51 | PROVIDERS: PCP Nurse Practitioner Family; Visit Provider Surgery | DX: D18.01 Hemangioma of skin and subcutaneous tissue (principal); Z79.899 Other long term (current) drug therapy | CPT/HCPCS: 11440; 88305 ==

== ENCOUNTER 2023-07-14 14:13 | Outpatient (REF) | payer OTHER, SELFPAY ==
[2023-07-14 16:34] LABS: Alanine Aminotransferase 62 U/L (0-40); Albumin Level 4.3 g/dL (3.5-5.0); Alkaline Phosphatase 62 U/L (39-117); Aspartate Amino Transferase 44 U/L (5-37); Bilirubin Direct 0.3 mg/dL (0.0-0.5); Bilirubin Total 0.7 mg/dL (0.0-1.0); Total Protein 7.2 g/dL (6.5-8.0)
[2023-07-14 16:40] LABS: Ferritin 700 ng/mL (20-250)
[2023-07-19 16:39] LABS: FIB-ALT 53 U/L (9-46); FIB-Alpha-2-Macroglobulin 287 mg/dL (106-279); FIB-Apolipoprotein A1 174 mg/dL (94-176); FIB-GGT 32 U/L (3-85); FIB-Haptoglobin 66 mg/dL (43-212); FIB-Total Bilirubin 0.6 mg/dL (0.2-1.2); Liver Fibrosis Score 0.48; Liver Fibrosis Stage F2; Nec Inflam Act Grade A1-A2; Nec Inflam Act Score 0.37
== END 2023-07-14 14:14 | disposition home or self-care (01) ==
LOC: HO.HMGCLDS 14:13
PROVIDERS: Visit Provider Nurse Practitioner Family
DX: R10.9 Unspecified abdominal pain (principal); R74.8 Abnormal levels of other serum enzymes
CPT/HCPCS: 36415; 80076; 81596; 82728

== ENCOUNTER 2023-07-16 10:33 | Outpatient (AMB) | payer OTHER, SELFPAY ==
--- NOTE | 2023-07-16 10:38 | A.OFFVIS_ITS ---
Intake Vital Signs 07/16/23 10:40 Height 6 ft 2 in Weight 279 lb 15.793 oz BMI 35.9 BP 115/70 Blood Pressure Location Rt brachial Position Sitting Pulse 50 Intake Visit Reasons: 6 month follow up Intake Note: Manjeet presents in the office as a 6 month follow up. CC: He states that he is not having any concerns today! Allergies No Known Allergies Allergy (Verified 07/16/23 10:40) HPI 6 month follow up HPI Details LAST VISIT Transaminitis Elevated liver enzymes back in May. Will repeat liver enzymes today. Liver ultrasound show normal echogenicity increased elastography. I will also order liver fibrosis panel for staging. Discussed with patient the importance of losing weight, increase activity/exercise. Avoiding alcohol, Tylenol. We ruled out autoimmune disorders, hemochromatosis, hepatitis. I will see patient in 6 months, sooner on as needed basis. Patient is agreeable to this plan and verbalizes understanding of instructions. He was given the opportunity to ask questions and all questions answered. -TODAY'S VISIT Patient reports to be feeling well. Occasional acid reflux depending on what he eats. Patient reports that he is taking [id number] omeprazole and Pepcid. Patient denies epigastric pain or discomfort. Denies dyspepsia, dysphagia or odynophagia. Recent lab work discussed with patient. Elevated ferritin level, however his hemochromatosis study was negative. Patient has not last weight, around the same weight. Has not been exercising. Patient denies any melena, hematochezia, unintentional weight loss or ribbon like stools. Patient had normal colonoscopy, diverticulosis found. Due to family history of colorectal cancer recommendation is 5 year screening, sooner if clinically necessary. [facility] Medical History DICK on CPAP Obesity Transaminitis Inflamed sebaceous cyst (12/24/22) Diverticulosis Aneurysm Nonalcoholic steatohepatitis (ROOT) Surgical History History of resection of rib History of appendectomy History of repair of right rotator cuff Hx of colonoscopy History of knee replacement Social History Are you a primary medicare specialist to a significant other at home: No Do you presently have visiting nurse or other home services: No Alcohol intake: current Alcohol intake frequency: holidays/special occasions only Patient Tobacco Use Status: Never used Tobacco Current occupational status: employed 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, 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 Review of Systems Const Denies weight gain and Denies weight loss ENT Reports no additional complaints, Denies dysphagia and Denies odynophagia Card Reports no additional complaints Resp Reports no additional complaints GI Denies abdominal pain, Denies belching, Denies melena, Denies bloating, Denies change in bowel habits, Denies dysphagia, Denies excessive flatus, Denies dyspepsia, Denies heartburn, Denies diarrhea, Denies loose stools, Denies nausea, Denies odynophagia and Denies vomiting Reports no additional complaints Musc Reports no additional complaints Neuro Reports no additional complaints Psych Reports no additional complaints Endo Reports no additional complaints Physical Exam Vital Signs: Last Vital Signs Pulse 50 07/16/23 10:40 BP 115/70 07/16/23 10:40 BMI result Body Mass Index 35.9 Const General: healthy appearing, no acute distress and well developed Nutritional Appearance: obese Orientation/consciousness: patient oriented x3 HEENT Head: Yes normal to inspection, Yes normocephalic and Yes atraumatic Face and sinus: Yes normal facial exam Mouth: Normal oral and palatal mucosa present Throat: Yes posterior oropharynx normal, Yes tonsils normal and Yes uvula midline Eyes General: appearance normal, both eyes and all related structures Neck Neck: Yes normal visual inspection, Yes full ROM and Yes trachea midline Thyroid: Thyroid normal Resp Effort & Inspection: normal respiratory effort, able to speak in complete sent[place] sharon, no tracheal deviation and symmetric chest movement Auscultation: clear to auscultation bilaterally Cardio Rate: regular rate Heart sounds: S1 normal heart sound present and S2 normal heart sound present GI Inspection: Yes normal to inspection, No distended and Yes obesity Palpation (GI): Soft to palpation, not firm, nontender and No hepatosplenomegaly present Auscultation: normal bowel sounds General: Yes no CVA tenderness Back/Spine/Pelvis Back: no CVA tenderness Skin General skin exam: elasticity normal, turgor normal and dry skin Neuro General: patient oriented x3 Psych Appearance: grossly normal Mental Status: mental status grossly normal Speech and movement: Normal speech and movement present Results Reviewed Results Reviewed: Laboratory Tests 07/14/23 14:17 Ferritin 700 H Total Bilirubin 0.7 Direct Bilirubin 0.3 AST 44 H ALT 62 H Alkaline Phosphatase 62 Liver Fibrosis Stage F2 Assessment & Plan Assessment & Plan (1) Transaminitis: Code(s): R74.01 - Elevation of levels of liver transaminase levels (2) GERD (gastroesophageal reflux disease): Code(s): K21.9 - Gastro-esophageal reflux disease without esophagitis Qualifiers: Esophagitis presence: esophagitis presence not specified Qualified Code(s): K21.9 - Gastro-esophageal reflux disease without esophagitis Plan Continue low fat diet. Patient was encouraged to exercise and lose weight. Will send him for ultrasound and will repeat liver panel in 6 months. Will send script for omeprazole to take in the morning and famotidine at bedtime on as needed basis. Patient was also encouraged to avoid dietary triggers in late night snacking. Staying upright for minimal 3 hours after meals discussed with patient. I will see him in 6 months, sooner on as needed basis. Patient is agreeable to this plan and verbalizes understanding of instructions. He was given the opportunity to ask questions and all questions answered. Thank you for allowing me to participate in his care Orders: Orders Liver Panel 6 Months R74.01 - Elevation of levels of liver transaminase levels US abdomen limited 07/16/23 R79.89 - Other specified abnormal findings of blood chemistry Medications: New omeprazole 20 mg PO DAILY 30 caps 2RF K21.9 - Gastro-esophageal reflux disease without esophagitis famotidine (Pepcid) 20 mg PO BEDTIME 90 tabs 3RF K21.9 - Gastro-esophageal reflux disease without esophagitis omeprazole 20 mg PO DAILY 90 caps 2RF K21.9 - Gastro-esophageal reflux disease without esophagitis Coding Level of Care Code Est Pt Level 3 (12264) Diagnoses Transaminitis R74.01 Gastroesophageal reflux disease, unspecified whether esophagitis present K21.9 Esophagitis presence: esophagitis presence not specified Time Spent (min) 25 Comment 15 minutes spent with patient and additional 10 minutes spent reviewing his records.
[2023-07-16 10:40] VITALS: BP 115/70; PULSE 50; BMI 35.9
== END 2023-07-16 11:16 | disposition home or self-care (01) ==
PROVIDERS: PCP Nurse Practitioner Family; Visit Provider Nurse Practitioner Family
DX: R74.01 Elevation of levels of liver transaminase levels (principal); K21.9 Gastro-esophageal reflux disease without esophagitis
CPT/HCPCS: 99213

== ENCOUNTER → 2023-07-16 10:33 | Outpatient (BNVA) | payer OTHER, SELFPAY | PROVIDERS: PCP Nurse Practitioner Family; Visit Provider Nurse Practitioner Family ==

== ENCOUNTER 2023-08-04 08:57 | Outpatient (REF) | payer OTHER, SELFPAY ==
--- NOTE | ~2023-08-04 | US_ITS ---
EXAMINATION: US ABDOMEN LIMITED CLINICAL INFORMATION: Other specified abnormal findings of blood chemistry. COMPARISON: US abdomen right upper quadrant. TECHNIQUE: Real-time imaging of the right upper quadrant abdominal viscera. Technically severely limited study secondary to body habitus. FINDINGS: PANCREAS: Limited visualization of pancreatic tail and head. Imaged portion of pancreatic body is unremarkable. LIVER: Increased parenchymal heterogeneity and echogenicity which could be associated with hepatic steatosis or hepatocellular disease and severely limits visualization. GALLBLADDER: No gallstones. No gallbladder wall thickening. COMMON BILE DUCT: Normal in caliber measuring 0.3 cm in diameter. RIGHT KIDNEY: No hydronephrosis. No renal calculi. Limited visualization. The kidney measures 11.8 cm in maximum dimension. FREE FLUID: None. US/US abdomen limited IMPRESSION: Increased parenchymal heterogeneity and echogenicity which could be associated with hepatic steatosis or hepatocellular disease and severely limits visualization.
== END 2023-08-04 08:58 | disposition home or self-care (01) ==
LOC: HO.HMGCX 08:57
PROVIDERS: PCP Nurse Practitioner Family; Visit Provider Nurse Practitioner Family
DX: R79.89 Other specified abnormal findings of blood chemistry (principal)
CPT/HCPCS: 76705

== ENCOUNTER 2023-12-03 06:37 | Outpatient (REF) | payer OTHER, SELFPAY ==
[2023-12-03 11:38] LABS: MANUAL DIFF FLAG NO
[2023-12-03 11:48] LABS: Basophils Percent Auto 0.5 % (0-2); Eosinophils Absolute Auto 0.1 X10*3/uL (0.0-0.4); Eosinophils Percent Auto 1.8 % (0-4); Hematocrit 44.4 % (42.0-52.0); Hemoglobin 15.1 g/dl (14.0-18.0); Imm Gran Abs Auto 0.02 X10*3/uL (0.00-0.03); Imm Gran Pct Auto 0.3 % (0.0-0.4); Lymphocytes Absolute Auto 2.4 X10*3/uL (1.2-4.9); Lymphocytes Percent Auto 38.8 % (20-40); Mean Corpuscular Hemoglobin 30.6 pg (27.0-33.0); Mean Corpuscular Volume 90.1 fL (80.0-98.0); Mean Platelet Volume 9.8 fL (9.4-12.4); Monocytes Absolute Auto 0.6 X10*3/uL (0.1-1.2); Neutrophils Absolute Auto 3.1 x10*3/uL (2.0-8.3); Neutrophils Percent Auto 49.6 % (45-73); Platelet Count 194 X10*3/uL (160-400); Red Blood Count 4.93 X10*6/uL (4.60-5.80); Red Cell Distribution Width 11.9 % (11.0-16.0); White Blood Count 6.2 X10*3/uL (4.8-10.8)
[2023-12-03 11:56] LABS: Estimated Average Glucose 111 mg/dL; Hemoglobin A1c % 5.5 % (<6.0)
[2023-12-03 12:26] LABS: Anion Gap 12 (12-20); Blood Urea Nitrogen 19 mg/dL (9-16); Calcium 9.6 mg/dL (8.4-10.2); Carbon Dioxide 29 mmol/L (22-29); Chloride 108 mmol/L (96-108); Cholesterol 167 mg/dL (<200); Estimated Glomerular Filt Rate > 60; Glucose Random 113 mg/dL (60-115); HDL Cholesterol 44 mg/dL (>40); LDL Cholesterol Calculated 111 mg/dL (<100); Potassium 6.2 mmol/L (3.3-5.1); Sodium 143 mmol/L (135-145); Triglycerides 62 mg/dL (<150)
[2023-12-03 12:29] LABS: TSH reflex Free T4 1.38 uIU/mL (0.32-4.0)
[2023-12-03 12:32] LABS: Vitamin B12 377 pg/mL (200-900)
[2023-12-03 16:08] LABS: Potassium 4.1 mmol/L (3.3-5.1)
[2023-12-07 15:18] LABS: Testosterone, Free 54.8 pg/mL (35.0-155.0); Testosterone, Total 507 ng/dL (250-1100)
[2023-12-08 05:33] LABS: Vitamin B6 27.5 ng/mL (2.1-21.7)
[2023-12-08 14:09] LABS: Vitamin B1 16 nmol/L (8-30)
[2023-12-10 19:13] LABS: Vitamin B2 (Riboflavin) 33.7 nmol/L (6.2-39.0)
== END 2023-12-03 06:38 | disposition home or self-care (01) ==
LOC: HO.HMGCLDS 06:37
PROVIDERS: PCP Nurse Practitioner Family; Referring Provider Internal Medicine; Visit Provider Nurse Practitioner Family
DX: Z00.00 Encounter for general adult medical examination without abnormal findings (principal); E87.5 Hyperkalemia; E66.9 Obesity, unspecified; R53.83 Other fatigue; G62.9 Polyneuropathy, unspecified
CPT/HCPCS: 36415; 80048; 80061; 82607; 83036; 84132; 84207; 84252; 84402; 84403; 84425; 84443; 85025

== ENCOUNTER 2024-01-16 10:58 | Outpatient (AMB) | payer OTHER, SELFPAY ==
--- NOTE | 2024-01-16 11:03 | MHC.OFFVIS ---
Intake Vital Signs 01/16/24 11:07 Height 6 ft 2 in Weight 285 lb BMI 36.6 BP 113/66 Blood Pressure Location Lt brachial Position Sitting Pulse 57 Intake Visit Reasons: 6 month follow up Intake Note: Patient follow up for GERD. Patient Denies any GI issues. Filter Press Pumper Required: No Accompanied by: Self / Same As Patient Allergies No Known Allergies Allergy (Verified 01/16/24 11:03) HPI 6 month follow up HPI Details LAST VISIT: Transaminitis GERD (gastroesophageal reflux disease) Plan Continue low fat diet. Patient was encouraged to exercise and lose weight. Will send him for ultrasound and will repeat liver panel in 6 months. Will send script for omeprazole to take in the morning and famotidine at bedtime on as needed basis. Patient was also encouraged to avoid dietary triggers in late night snacking. Staying upright for minimal 3 hours after meals discussed with patient. I will see him in 6 months, sooner on as needed basis. Patient is agreeable to this plan and verbalizes understanding of instructions. He was given the opportunity to ask questions and all questions answered. ? Thank you for allowing me to participate in his care Orders Orders Liver Panel 6 Months R74.01 US abdomen limited 07/16/23 R79.89 Medications New omeprazole 20 mg PO DAILY 30 caps 2RF K21.9 famotidine (Pepcid) 20 mg PO BEDTIME 90 tabs 3RF K21.9 omeprazole 20 mg PO DAILY 90 caps 2RF K21.9 TODAY'S VISIT: Patient is here today for follow-up. Patient reports that he has been feeling well, denies any GI concerning symptoms today. Patient is here to discuss lab work. Patient had blood work done in November, however liver profile was not done. Patient will go and get it done today. Patient states that he started in beginning of this month exercising and watching his diet. Patient is following [employer] program that helps lose weight. Patient states that he did that before and successfully lost several lb. [facility] Medical History DICK on CPAP Obesity Transaminitis Inflamed sebaceous cyst (12/24/22) Diverticulosis Aneurysm Nonalcoholic steatohepatitis (ROOT) Surgical History History of resection of rib History of appendectomy History of repair of right rotator cuff Hx of colonoscopy History of knee replacement Social History Are you a primary residential child care counselor to a significant other at home: No Do you presently have visiting nurse or other home services: No Alcohol intake: current Alcohol intake frequency: holidays/special occasions only Patient Tobacco Use Status: Never used Tobacco Current occupational status: employed 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, 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 Review of Systems Const Denies weight gain and Denies weight loss ENT Reports no additional complaints, Denies dysphagia and Denies odynophagia Card Reports no additional complaints Resp Reports no additional complaints GI Denies abdominal pain, Denies belching, Denies melena, Denies bloating, Denies change in bowel habits, Denies dysphagia, Denies excessive flatus, Denies dyspepsia, Denies heartburn, Denies diarrhea, Denies loose stools, Denies nausea, Denies odynophagia and Denies vomiting Reports no additional complaints Musc Reports no additional complaints Neuro Reports no additional complaints Psych Reports no additional complaints Endo Reports no additional complaints Physical Exam Vital Signs: Last Vital Signs Pulse 57 01/16/24 11:07 BP 113/66 01/16/24 11:07 BMI result Body Mass Index 36.6 Const General: healthy appearing and no acute distress Nutritional Appearance: obese Orientation/consciousness: patient oriented x3 Resp Effort & Inspection: normal respiratory effort, able to speak in complete sentences, no tracheal deviation and symmetric chest movement Auscultation: clear to auscultation bilaterally Cardio Rate: regular rate GI Inspection: Yes normal to inspection, No distended and Yes obesity Palpation (GI): Soft to palpation, not firm, nontender and No hepatosplenomegaly present Auscultation: normal bowel sounds General: Yes no CVA tenderness Back/Spine/Pelvis Back: no CVA tenderness Skin General skin exam: elasticity normal, turgor normal and dry skin Neuro General: patient oriented x3 Psych Appearance: grossly normal Mental Status: mental status grossly normal Results Reviewed Results Reviewed: ABDOMINAL ULTRASOUND JULY 2023 FINDINGS: PANCREAS: Limited visualization of pancreatic tail and head. Imaged portion of pancreatic body is unremarkable. LIVER: Increased parenchymal heterogeneity and echogenicity which could be associated with hepatic steatosis or hepatocellular disease and severely limits visualization. GALLBLADDER: No gallstones. No gallbladder wall thickening. COMMON BILE DUCT: Normal in caliber measuring 0.3 cm in diameter. RIGHT KIDNEY: No hydronephrosis. No renal calculi. Limited visualization. The kidney measures 11.8 cm in maximum dimension. FREE FLUID: None. US/US abdomen limited IMPRESSION: Increased parenchymal heterogeneity and echogenicity which could be associated with hepatic steatosis or hepatocellular disease and severely limits visualization. Assessment & Plan Assessment & Plan (1) Transaminitis: Code(s): R74.01 - Elevation of levels of liver transaminase levels (2) GERD (gastroesophageal reflux disease): Code(s): K21.9 - Gastro-esophageal reflux disease without esophagitis Qualifiers: Esophagitis presence: esophagitis presence not specified Qualified Code(s): K21.9 - Gastro-esophageal reflux disease without esophagitis Plan Patient was encouraged to lose weight, he will go today to get blood work done we will add iron level and ferritin. Discussed with patient eating food that is high in protein and less fat. Avoid alcohol. I will see patient in 6 months we will repeat ultrasound with elastography and liver fibrosis panel if liver enzymes are still elevated. Patient will call our office if he will have any GI concerning symptoms. Continue pantoprazole in the morning and famotidine at bedtime. He is agreeable to this plan and verbalizes understanding of instructions. He was given the opportunity to ask questions and all questions answered. Thank you for allowing me to participate in his care Orders: Orders IRON PROFILE Today D64.9 - Anemia, unspecified Ferritin Today R74.8 - Abnormal levels of other serum enzymes Coding Level of Care Code Est Pt Level 3 (62739) Diagnoses Transaminitis R74.01 Gastroesophageal reflux disease, unspecified whether esophagitis present K21.9 Esophagitis presence: esophagitis presence not specified Time Spent (min) 25 Comment 15 minutes spent with patient and additional 10 minutes spent reviewing his records
[2024-01-16 11:07] VITALS: BP 113/66; PULSE 57; BMI 36.6
== END 2024-01-16 17:21 ==
PROVIDERS: PCP Nurse Practitioner Family; Visit Provider Nurse Practitioner Family
DX: R74.01 Elevation of levels of liver transaminase levels (principal); K21.9 Gastro-esophageal reflux disease without esophagitis
CPT/HCPCS: 99213

== ENCOUNTER 2024-01-16 10:58 | Outpatient (REF) | payer OTHER, SELFPAY ==
[2024-01-16 13:19] LABS: Alanine Aminotransferase 75 U/L (0-40); Albumin Level 4.1 g/dL (3.5-5.0); Alkaline Phosphatase 67 U/L (39-117); Aspartate Amino Transferase 53 U/L (5-37); Bilirubin Direct 0.3 mg/dL (0.0-0.5); Bilirubin Total 0.6 mg/dL (0.0-1.0); Iron 95 mcg/dL (45-160); Percent Iron Saturation 36 % (15-50); Total Iron Binding Capacity 265 mcg/dL (228-428); Unsaturated Iron Binding 170 ug/dL
[2024-01-16 13:36] LABS: Ferritin 951 ng/mL (20-250)
== END 2024-01-16 10:59 | disposition home or self-care (01) ==
LOC: HO.LAB 10:58
PROVIDERS: PCP Nurse Practitioner Family; Visit Provider Nurse Practitioner Family
DX: R74.01 Elevation of levels of liver transaminase levels (principal); R74.8 Abnormal levels of other serum enzymes; K21.9 Gastro-esophageal reflux disease without esophagitis; D64.9 Anemia, unspecified
CPT/HCPCS: 36415; 80076; 82728; 83540

== ENCOUNTER 2024-04-26 09:16 | Outpatient (AMB) | payer OTHER, SELFPAY ==
--- NOTE | 2024-04-26 09:22 | MHC.OFFWIV ---
Intake Vital Signs 04/26/24 09:23 Height 6 ft 2 in Weight 293 lb BMI 37.6 BP 118/76 Blood Pressure Location Lt brachial Position Sitting Pulse 76 Pulse Source Pulse Oximeter Temp 97.9 F Temp Source Temporal Artery Scan Pulse Oximetry (%) 98 Oxygen Delivery Method Room Air Intake Visit Reasons: EP fell rt shoulder pain bee sting lft arm Intake Note: pt is here for right shoulder pain due to fall and left forearm swelling due to bee sitng Patient Tobacco Use Status: Never used Tobacco Allergies No Known Allergies Allergy (Verified 01/16/24 11:03) Do you need a note to return to daycare/school/sports/work: No HPI EP fell rt shoulder pain bee sting lft arm HPI Details This note is constructed using voice recognition software. While every effort has been made to ensure accuracy, detail drafter errors may have been included. 58-year-old male patient presents with pain in his right shoulder after a fall yesterday while doing yd work. Notes that he got his feet caught in volumes, and fell landing on his right forearm with the bulk of the force going into his right shoulder. He is having pain on adduction, with otherwise full range of motion. He has noted no difference in his strength. Additionally about an hour after that, he notes that he was stung by a bee on his left forearm. He notes that the area to be itchy, and red. No warmth. No discharge. He has no known allergy to bees. [facility] Medical History DICK on CPAP Obesity Transaminitis Inflamed sebaceous cyst (12/24/22) Diverticulosis Aneurysm Nonalcoholic steatohepatitis (ROOT) Surgical History History of resection of rib History of appendectomy History of repair of right rotator cuff Hx of colonoscopy History of knee replacement Social History Are you a primary career and transition teacher to a significant other at home: No Do you presently have visiting nurse or other home services: No Alcohol intake: current Alcohol intake frequency: holidays/special occasions only Patient Tobacco Use Status: Never used Tobacco Current occupational status: employed 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, 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 Review of Systems Const All systems reviewed & are unremarkable except as noted in HPI and below Physical Exam Vital Signs: Last Vital Signs Temp 97.9 F 04/26/24 09:23 Pulse 76 04/26/24 09:23 BP 118/76 04/26/24 09:23 Pulse Ox 98 04/26/24 09:23 Oxygen Delivery Method Room Air 04/26/24 09:23 BMI result Body Mass Index 37.6 Const General: cooperative, healthy appearing, comfortable, no acute distress and alert Orientation/consciousness: patient oriented x3 Limitations: no limitations Neck Neck: Yes normal visual inspection, Yes full ROM and Yes no lymphadenopathy Skin Other: Right forearm bee-sting present. Moderate amount of erythema surrounding 2 cm, no discharge or warmth. General skin exam: elasticity normal and turgor normal Neuro General: patient oriented x3 Extrem Other: Strength 5/5. Distal neurovascular exam intact. General: Yes normal to inspection, Yes full ROM, Yes capillary refill normal and Yes normal exam except as noted Right upper extremity: normal to inspection, full ROM and normal capillary refill Shoulder/upper arm images: 1. area of pain Psych Appearance: grossly normal Mental Status: mental status grossly normal Speech and movement: Normal speech and movement present Affect: normal affect Assessment & Plan Assessment & Plan (1) Right shoulder pain: Code(s): M25.511 - Pain in right shoulder Qualifiers: Chronicity: acute Qualified Code(s): M25.511 - Pain in right shoulder Plan: Given nature of injury, we will obtain x-ray to rule out fracture. Appears more consistent with strain muscle. Advise use of NSAIDs for pain and inflammation, as well as use of topical muscle rub. Advised follow-up with PCP with worsening symptoms or failure to resolve. (2) Bee sting: Code(s): T63.441A - Toxic effect of venom of bees, accidental (unintentional), initial encounter Qualifiers: Encounter type: initial encounter Injury intent: accidental or unintentional Qualified Code(s): T63.441A - Toxic effect of venom of bees, accidental (unintentional), initial encounter Plan: Advise use of topical hydrocortisone, for itch. Trial of antihistamine with Zyrtec, also H2 nubia famotidine [id number] for symptom management. Advised follow-up with worsening, or failure to resolve, including streaking, discharge, or any new symptoms such as shortness of breath. Plan See above for full details and plan. X-ray obtained above, reviewed results, question foreign body intra-articularly. Called patient to notify. Referral placed to orthopedics. Orders: Orders XR shoulder RT min 2V Today M25.511 - Pain in right shoulder Coding Level of Care Code Est Pt Level 4 (66953) Diagnoses Acute pain of right shoulder M25.511 Chronicity: acute Bee sting, accidental or unintentional, initial encounter T63.441A Encounter type: initial encounter Injury intent: accidental or unintentional Time Spent (min) 15
[2024-04-26 09:23] VITALS: BP 118/76; PULSE 76; TEMP 36.6; O2SAT 98; BMI 37.6
== END 2024-04-26 10:42 | disposition home or self-care (01) ==
PROVIDERS: PCP Nurse Practitioner Family; Visit Provider Registered Nurse
DX: M25.511 Pain in right shoulder (principal); T63.441A Toxic effect of venom of bees, accidental (unintentional), initial encounter
CPT/HCPCS: 99213

== ENCOUNTER 2024-04-26 10:19 | Outpatient (REF) | payer OTHER, SELFPAY ==
--- NOTE | ~2024-04-26 | XR_ITS ---
EXAMINATION: XR SHOULDER, RIGHT CLINICAL INFORMATION: Shoulder pain COMPARISON: Right scapula 11/08/2021 TECHNIQUE: Three views of the right shoulder. FINDINGS: An seen are some small osteophytes at the inferior glenohumeral joint. The joint spaces not narrowed. Minimal degenerative change seen at the AC joint. No fractures or dislocations. No tendinous calcification. There is a 2 mm rounded osseous density seen at the superior glenoid which could represent a small intra-articular free body. The shoulder pain persists, a CT or possibly CT arthrogram evaluation. XR/XR shoulder RT min 2V IMPRESSION: Mild degenerative changes in the right shoulder with possible small intra-articular free body.
== END 2024-04-26 10:20 | disposition home or self-care (01) ==
LOC: HO.HMGCX 10:19
PROVIDERS: Visit Provider Registered Nurse
DX: M25.511 Pain in right shoulder (principal)
CPT/HCPCS: 73030

== ENCOUNTER 2024-05-19 06:31 | Outpatient (REF) | payer OTHER, SELFPAY ==
[2024-05-19 10:54] LABS: Alanine Aminotransferase 68 U/L (0-40); Albumin Level 3.9 g/dL (3.5-5.0); Alkaline Phosphatase 56 U/L (39-117); Anion Gap 10 (12-20); Aspartate Amino Transferase 42 U/L (5-37); Bilirubin Total 0.6 mg/dL (0.0-1.0); Blood Urea Nitrogen 20 mg/dL (9-16); Calcium 9.6 mg/dL (8.4-10.2); Carbon Dioxide 28 mmol/L (22-29); Chloride 105 mmol/L (96-108); Cholesterol 193 mg/dL (<200); Estimated Glomerular Filt Rate > 60; Glucose Random 105 mg/dL (60-115); HDL Cholesterol 50 mg/dL (>40); LDL Cholesterol Calculated 128 mg/dL (<100); Sodium 139 mmol/L (135-145); Total Protein 6.5 g/dL (6.5-8.0); Triglycerides 76 mg/dL (<150)
[2024-05-19 11:41] LABS: Estimated Average Glucose 114 mg/dL; Hemoglobin A1c % 5.6 % (<6.0)
== END 2024-05-19 06:32 | disposition home or self-care (01) ==
LOC: HO.HMGCLDS 06:31
PROVIDERS: Visit Provider Nurse Practitioner Family
DX: E66.9 Obesity, unspecified (principal); Z13.1 Encounter for screening for diabetes mellitus
CPT/HCPCS: 36415; 80053; 80061; 83036

== ENCOUNTER 2024-05-20 14:21 | Outpatient (AMB) | payer OTHER, SELFPAY ==
--- NOTE | 2024-05-20 14:24 | A.OFFVIS_ITS ---
Intake Visit Reasons: MEDICAL RESEARCH TECH Right shoulder pain, DOI 04/25/24 Intake Note: Edgar 58 year male who presents today for a new patient evaluation of right shoulder pain, DOI 04/25/24. Patient reports having a fall causing him to land on his right shoulder. States his pain has improved however there was an abnormal xray result and is here to discuss with provider. Allergies No Known Allergies Allergy (Verified 05/20/24 14:41) HPI HPI MEDICAL RESEARCH TECH Right shoulder pain, DOI 04/25/24: Details: Manjeet is a 58-year-old male who presents today as a new patient for an evaluation of right shoulder pain. He states that he fell and landed on his right shoulder. Currently, he noticed improvement in his pain, however, his x-rays were abnormal and is here to discuss with provider. He has been experiencing stiffness in his shoulder. [facility] Medical History (Updated 05/24/24 @ 14:46 by Marie Baxter PA-C) DICK on CPAP Obesity Transaminitis Inflamed sebaceous cyst (12/24/22) Diverticulosis Aneurysm Nonalcoholic steatohepatitis (ROOT) Surgical History History of resection of rib History of appendectomy History of repair of right rotator cuff Hx of colonoscopy History of knee replacement Social History Are you a primary behavioral health care manager to a significant other at home: No Do you presently have visiting nurse or other home services: No Alcohol intake: current Alcohol intake frequency: holidays/special occasions only Patient Tobacco Use Status: Never used Tobacco Current occupational status: employed 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, 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 Review of Systems Const All systems reviewed & are unremarkable except as noted in HPI and below Physical Exam Const General: cooperative, healthy appearing, comfortable and no acute distress Orientation/consciousness: patient oriented x3 Neck Neck: Yes normal visual inspection and Yes no JVD Chest Chest palpation & inspection: normal inspection of the chest Resp Effort & Inspection: normal respiratory effort Auscultation: clear to auscultation bilaterally, crackles (no), rales (no), rhonchi (no) and wheezes (no) Cardio Jugular venous distension: no JVD Rate: regular rate Rhythm: regular rhythm Heart sounds: S1 normal heart sound present, S2 normal heart sound present, Murmur heart sound present (no) and Rub heart sound present (no) Neuro General: patient oriented x3 Extrem Other: Right shoulder: Normal to inspection. Tenderness over the bicipital groove and along the deltoid region of the shoulder. Forward flexion to 175, external rotation to 90, internal rotation to S1. 5/5 RTC strength. Negative Reinoso and cross body abduction. NVI. General: Yes normal to inspection, Yes no pedal edema and Yes no calf tenderness Psych Appearance: grossly normal Mental Status: mental status grossly normal Speech and movement: Normal speech and movement present Results Reviewed Results Reviewed: 04/26/24 XR shoulder RT min 2V IMPRESSION: Mild degenerative changes in the right shoulder with possible small intra-articular free body. Assessment & Plan Assessment & Plan (1) Right shoulder tendinitis: Code(s): M77.8 - Other enthesopathies, not elsewhere classified Category: Medical Plan Given that he is feeling significantly better since his injury. He will continue with daily activities as tolerated. If symptoms arise, he will contact our office, otherwise follow up as needed. Patient Instructions: Scribed for Marie Baxter PA-C, by Jett Amos medical office scheduler, on 05/20/2024 at 2:30 PM EST. I, Marie Baxter PA-C, have personally reviewed and agree with the information entered by the scribe. Coding Level of Care Code New Pt Level 3 (18269) Diagnoses Right shoulder tendinitis M77.8
== END 2024-05-20 15:06 | disposition home or self-care (01) ==
PROVIDERS: PCP Nurse Practitioner Family; Visit Provider Physician Assistant
DX: M77.8 Other enthesopathies, not elsewhere classified (principal)
CPT/HCPCS: 99203

== ENCOUNTER → 2024-05-20 14:21 | Outpatient (BNVA) | payer OTHER, SELFPAY | PROVIDERS: PCP Nurse Practitioner Family; Visit Provider Physician Assistant ==

== ENCOUNTER 2024-05-25 11:43 | Emergency (ER) | payer OTHER, SELFPAY ==
--- NOTE | ~2024-05-25 | CT_ITS ---
EXAMINATION: CT LUMBAR SPINE WITHOUT CONTRAST CT SACRUM WITHOUT CONTRAST CLINICAL INFORMATION: Fall onto tailbone, pain COMPARISON: None TECHNIQUE: A multidetector CT acquisition of the lumbar spine and sacrum is obtained without contrast. Coronal and sagittal reformations were provided. This CT examination was performed using dose optimization techniques as appropriate, variously including the following: *Automated exposure control *Adjustment of mA and/or kV according to patient size (this includes techniques or standardized protocols for targeted exams where dose is matched to indication/reason for exam; i.e. extremities or head) *Use of iterative reconstruction technique DLP: 700+296 mGy-cm FINDINGS: Transitional anatomy with rudimentary ribs on the L1 vertebral body. For the purposes of this examination, the L5-S1 intervertebral disc space is visualized on axial series 5 image 267. The normal lumbar lordosis is preserved. No significant spondylolisthesis. Lumbar vertebral body heights are maintained. No expansile or destructive osseous lesion. Prominent epidural fat with probable moderate spinal canal stenosis at L3-4 and L4-L5. Moderate left neural foraminal stenosis at L3-L4. Moderate to severe, right greater than left, neural foraminal stenosis at L4-L5. Moderate right and mild left neural foraminal stenosis at L5-S1. Sacral vertebral body heights are maintained. Limited evaluation of the coccyx is grossly unremarkable. Surgical clips overlie the right inguinal region on slate trimmer image. Otherwise, limited intra-abdominal evaluation is within normal limits. CT/CT sacrum IMPRESSION: No acute, displaced fracture of the lumbar spine and sacrum. Multilevel degenerative changes, as described above, would be better evaluated on MRI.
--- NOTE | ~2024-05-25 | CT_ITS ---
EXAMINATION: CT LUMBAR SPINE WITHOUT CONTRAST CT SACRUM WITHOUT CONTRAST CLINICAL INFORMATION: Fall onto tailbone, pain COMPARISON: None TECHNIQUE: A multidetector CT acquisition of the lumbar spine and sacrum is obtained without contrast. Coronal and sagittal reformations were provided. This CT examination was performed using dose optimization techniques as appropriate, variously including the following: *Automated exposure control *Adjustment of mA and/or kV according to patient size (this includes techniques or standardized protocols for targeted exams where dose is matched to indication/reason for exam; i.e. extremities or head) *Use of iterative reconstruction technique DLP: 700+296 mGy-cm FINDINGS: Transitional anatomy with rudimentary ribs on the L1 vertebral body. For the purposes of this examination, the L5-S1 intervertebral disc space is visualized on axial series 5 image 267. The normal lumbar lordosis is preserved. No significant spondylolisthesis. Lumbar vertebral body heights are maintained. No expansile or destructive osseous lesion. Prominent epidural fat with probable moderate spinal canal stenosis at L3-4 and L4-L5. Moderate left neural foraminal stenosis at L3-L4. Moderate to severe, right greater than left, neural foraminal stenosis at L4-L5. Moderate right and mild left neural foraminal stenosis at L5-S1. Sacral vertebral body heights are maintained. Limited evaluation of the coccyx is grossly unremarkable. Surgical clips overlie the right inguinal region on shoe dyer image. Otherwise, limited intra-abdominal evaluation is within normal limits. CT/CT lumbar spine wo IV con IMPRESSION: No acute, displaced fracture of the lumbar spine and sacrum. Multilevel degenerative changes, as described above, would be better evaluated on MRI.
--- NOTE | 2024-05-25 12:14 | ED_ITS ---
HPI - Fall General Chief Complaint: Back Pain/Injury Stated Complaint: Fall - back injury Time Seen by Provider: 05/25/24 15:20 Source: patient Mode of arrival: ambulatory Limitations: no limitations History of Present Illness ED Provider: anais NAVARRETE Narrative: Patient is a 58-year-old male presenting to emergency department with complaint right lower back pain after a slip and fall at work this morning. He reports that the floor was wet and he did not realize this causing him to fall onto his back. States he has been able to ambulate since but the pain is severe. Did not take any [id number]-[id number] medications for his symptoms. Denies radiation of pain to his lower extremities. Denies any weakness, numbness, tingling to extremities. Denies any saddle anesthesia or bowel or bladder incontinence. States at times he feels as though he is having muscle spasms which wrap around his hip towards his groin area. Denies history of prior back surgeries. Denies head strike or loss of consciousness. He is not anticoagulated. complaint: fall Onset (ago): hour(s) Fall from: standing Place fall occurred: work Loss of consciousness: none Prolonged down time: no Symptoms prior to fall: none Context: tripped/slipped Location of injury: back Severity: severe Quality: spasming Associated symptoms (after fall): denies Related Data Home Medications ?Medication ?Instructions ?Recorded ?Confirmed magnesium 1 tab PO DAILY 08/27/22 02/12/23 multivitamin 1 tab PO DAILY 08/27/22 02/12/23 Previous Rx's ?Medication ?Instructions ?Recorded famotidine 20 mg tablet (Pepcid) 20 mg PO BEDTIME #90 tabs 07/16/23 vitamin E (dl, acetate) 450 mg 450 mg PO DAILY #90 caps 10/24/23 (1,000 unit) capsule omeprazole 20 mg capsule,delayed 20 mg PO DAILY #90 caps 05/04/24 release cyclobenzaprine 10 mg tablet 10 mg PO TID PRN muscle spasm #10 05/25/24 tabs lidocaine 5 % topical patch 1 patch topical DAILY #15 ea 05/25/24 Allergies Allergy/AdvReac Type Severity Reaction Status Date / Time No Known Allergies Allergy Verified 05/25/24 12:19 Review of Systems Review of Systems: As per HPI. Yes all other systems are reviewed and are negative Constitutional: Constitutional: Reports as per HPI [facility] Past Medical History Medical History (Updated 05/25/24 @ 18:35 by Maureen Ochoa NP) DICK on CPAP Obesity Transaminitis Inflamed sebaceous cyst (12/24/22) Diverticulosis Aneurysm Nonalcoholic steatohepatitis (ROOT) Surgical History History of resection of rib History of appendectomy History of repair of right rotator cuff Hx of colonoscopy History of knee replacement Social History Social History Are you a primary care connector to a significant other at home: No Do you presently have visiting nurse or other home services: No Alcohol intake: current Alcohol intake frequency: holidays/special occasions only Patient Tobacco Use Status: Never used Tobacco Advance Directives: No Advance Directives Information Provided: No Current occupational status: employed 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 Blood pressure normal. Heart rate normal. Respiratory rate normal. Temperature normal. Oxygen saturation normal. Const: General: cooperative, healthy appearing and no acute distress Orientation/consciousness: oriented to person, oriented to place, oriented to time and patient oriented x3 Limitations: no limitations HEENT: Head: Yes normocephalic and Yes atraumatic Ears: external ears normal General nose exam: Normal external nose present Face and sinus: Yes face symmetric Mouth: oropharynx normal and moist mucous membranes Throat: Yes uvula midline Eyes: Pupils: Equal, round and reactive pupils present Neck: Neck: Yes normal visual inspection and Yes supple Resp: Effort & Inspection: normal respiratory effort and able to speak in complete sentences Auscultation: clear to auscultation bilaterally Cardio: Rate: regular rate Rhythm: regular rhythm Heart sounds: S1 normal heart sound present and S2 normal heart sound present GI: Palpation (GI): Soft to palpation and nontender Auscultation: normoactive bowel sounds : General: Yes no CVA tenderness Back/Spine/Pelvis: Back: no CVA tenderness Cervical Spine: normal cervical lordosis, cervical ROM normal, No cervical muscular tenderness, No pain with cervical ROM, No Cervical spine tenderness and No step off deformity Thoracic/Lumbar Spine: thoracic and lumbar spine normal to inspection, straight leg raise negative bilaterally, pain with thoraco-lumbar ROM, paraspinal muscle tenderness on the right in the upper lumbar and in the mid lumbar, thoraco- lumbar ROM limited (all directions due to pain), thoraco-lumbar spasm on the right in the upper lumbar and in the mid lumbar, No thoracic spinal tenderness and No lumbar spinal tenderness Pelvis: no pain with anterior-posterior compression and no pain with lateral compression Skin: General skin exam: elasticity normal and turgor normal Neuro: General: oriented to person, oriented to place, oriented to time, patient oriented x3, gait normal, tone normal, moves all extremities, Normal light touch and pain sensation, no focal motor deficits, CN's II-XI intact bilaterally and deep tendon reflexes 2+ bilaterally Cranial nerves: Yes Equal, round and reactive pupils present Cognition (Neuro): normal cognition Motor exam (neuro): 5/5 motor strength present throughout, Normal motor muscle tone present throughout and Motor abnormalities not present Sensory Exam: Normal double simultaneous stimulation for sensation Extrem: General: Yes full ROM, Yes no pedal edema and Yes no calf tenderness Psych: Mental Status: mental status grossly normal Affect: normal affect Thought process: Normal thought process present Course Course Course Narrative: This is a Rapid Medical Examination (RME) performed by Darinel Galvez PA-C in triage. Full HPI, ROS, assessment and treatment plan per primary provider in the Main ED. 58 yo male hx of obesity, DICK on CPAP, ROOT, transaminitis, and diverticulosis here for eval of low back pain s/p slip and fall this morning. admits to landing on his tailbone. denies head strike or LOC. not on AC. admits to intense spasming of the low back exacerbated by movement. pain radiates into groin. denies saddle anesthesia, bowel or bladder incontinence or retention. sees chiropractor for chronic back pain, last saw them yesterday. denies hx of IVDU. denies spinal surgeries. + no midline spinous tenderness or step off deformity. there is right lumbar paraspinal spasming. sensation intact to light touch. unable to assess gait as movement induces pain. Plan: imaging ordered Medications Administered Discontinued Medications Generic Name Dose Route Start Last Admin Trade Name Royce PRN Reason Stop Dose Admin Diazepam 5 mg 05/25/24 17:21 05/25/24 17:33 Diazepam 10 Mg/2 Ml Cartridge IM 05/25/24 17:22 5 mg STAT STA Administration Ketorolac Tromethamine 30 mg 05/25/24 17:21 05/25/24 17:34 Ketorolac Tromethamine 30 Mg/Ml Vial IM 05/25/24 17:22 30 mg ONCE ONE Administration Medical Decision Making Medical Decision Making [facility] Narrative: Patient is a 58-year-old male presenting to emergency department with complaint right lower back pain after a slip and fall at work this morning. On exam patient is awake, A+Ox3, VS WNL, afebrile, normal neurological exam without focal deficits, physical exam findings as above. Given reported symptoms and physical exam findings, initial differential includes lumbar strain, lumbar radiculopathy, degenerative disc disease, disc herniation, spinal stenosis, spondylosis, vertebral fracture. No red flag findings concerning for malignancy/mass, SEA, cauda equina/cord compression. CT notable for no acute frature or lumbar or sacrum. My interpretation is in agreement with the radiologist's interpretation. Results discussed with patient and all questions answered. Will treat with cyclobenzaprine and topical lidocaine patches, advised patient to alternate Tylenol and ibuprofen. Patient states he works for himself so is able to take the day off and rest tomorrow. Instructed him to follow-up with PCP. Return precautions discussed at bedside. Patient verbalized understanding of and agreement with plan. Differential Diagnosis Differential Diagnoses: The differential diagnosis associated with the presentation includes As per MDM. Independent Interpretation I performed an independent interpretation of an: CT Scan Interpretation: CT notable for no acute frature or lumbar or sacrum. Radiology Impression Discussion of test interpretation with radiology: I have reviewed the radiologist's reading. Radiologist Impression: CT/CT lumbar spine wo IV con IMPRESSION: No acute, displaced fracture of the lumbar spine and sacrum. Multilevel degenerative changes, as described above, would be better evaluated on MRI. External Record Review External record reviewed: Inpatient record, Office record and Outpatient record Prescription Management I considered prescription management with: Pain Medication and Other Discharge Plan Discharge Clinical Impression: Strain of lumbar region Patient Disposition: Home, Self-Care Instructions: Low Back Strain (ED), Acute Low Back Pain (ED) Additional Instructions: You were evaluated in the emergency department today for back pain. Your evaluation did not show signs of medical conditions requiring emergent intervention at this time. We recommended that you use ibuprofen or Tylenol per package directions every 6 hours as needed for pain. If necessary, you can alternate these medications so that you take one medication every 3 hours. For instance, at noon take ibuprofen, then at 3:00 p.m. take Tylenol, then at 6:00 p.m. take ibuprofen. You have been prescribed a muscle relaxer which you may take every 8 hours as needed for spasms. You have been prescribed 5% topical lidocaine patches which you can wear for up to 12 hours in a 24 hour period. Do not apply heat directly over the patches. Please schedule an appointment for follow-up with your primary care physician this week for further evaluation of your symptoms. Return to the emergency department if you experience worsening back pain, difficulty walking, fevers, numbness, tingling, incontinence, groin numbness or tingling, or any other concerning symptoms. Prescriptions: New cyclobenzaprine 10 mg tablet 10 mg PO TID PRN (Reason: muscle spasm) Qty: 10 0RF lidocaine 5 % adhesive patch,medicated 1 patch topical DAILY Qty: 15 0RF Rx Instructions: leave on most painful area for up to 12 hrs No Action vitamin E (dl, acetate) 450 mg (1,000 unit) capsule 450 mg PO DAILY Qty: 90 2RF omeprazole 20 mg capsule,delayed release(DR/EC) 20 mg PO DAILY Qty: 90 2RF multivitamin Tablet 1 tab PO DAILY magnesium Tablet 1 tab PO DAILY famotidine [Pepcid] 20 mg tablet 20 mg PO BEDTIME Qty: 90 3RF Print Language: Sinhala
[2024-05-25 12:15] VITALS: BP 116/70; PULSE 72; RESP 16; TEMP 37; O2SAT 96; BMI 37.5
--- NOTE | 2024-05-25 14:45 | PC.NURSE ---
CT called by Maggie SPEAR to check on status of pt imagining as pt has not gone yet.
[2024-05-25 15:21] VITALS: BP 112/51; PULSE 61; RESP 18; TEMP 36.8; O2SAT 96
[2024-05-25 16:36] VITALS: BP 114/58; PULSE 56; RESP 18; TEMP 36.5; O2SAT 97
[2024-05-25] MEDS: diazePAM 10 MG/2 ML CARTRIDGE 5 MG IM (17:33)
[2024-05-25] MEDS: Ketorolac Tromethamine 30 MG/ML VIAL IM (17:34)
[2024-05-25 18:12] VITALS: BP 116/64; PULSE 57; RESP 20; TEMP 36.7; O2SAT 95
[2024-05-25 18:39] VITALS: BP 116/64; PULSE 57; RESP 20; TEMP 36.7; O2SAT 95
== END 2024-05-25 18:41 | disposition home or self-care (01) ==
PROVIDERS: Emergency Provider Internal Medicine
DX: S39.012A Strain of muscle, fascia and tendon of lower back, initial encounter (principal); W01.0XXA Fall on same level from slipping, tripping and stumbling without subsequent striking against object, initial encounter; Y93.89 Activity, other specified; Y92.89 Other specified places as the place of occurrence of the external cause; Y99.0 Civilian activity done for income or pay
CPT/HCPCS: 72131; 72192; 96372; 99284; J1885; J3360

== ENCOUNTER 2024-06-09 11:54 | Outpatient (AMB) | payer OTHER, SELFPAY ==
--- NOTE | 2024-06-09 12:01 | MHC.OFFVIS ---
Vital Signs 06/09/24 12:02 Height 6 ft 2 in Weight 291 lb 7.218 oz BMI 37.4 BP 126/74 Blood Pressure Location Rt brachial Position Sitting Pulse 76 Pulse Source Pulse Oximeter Pulse Oximetry (%) 96 Oxygen Delivery Method Room Air Intake Visit Reasons: follow up Intake Note: Manjeet presents in office today for a scheduled FUV. CC: Pt reports that they have been well and stable since their last visit. Pt denies any significant sx or concerns at this time. Pt reports needing refills of the omeprazole and the famotidine. Pt states that those medications are still working well for him. 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 Discussed with patient eating food that is high in protein and less fat. Avoid alcohol. I will see patient in 6 months we will repeat ultrasound with elastography and liver fibrosis panel if liver enzymes are still elevated. Patient will call our office if he will have any GI concerning symptoms. Continue pantoprazole in the morning and famotidine at bedtime. He is agreeable to this plan and verbalizes understanding of instructions. He was given the opportunity to ask questions and all questions answered. ? Thank you for allowing me to participate in his care Orders Orders IRON PROFILE Today D64.9 Ferritin Today R74.8 TODAY'S VISIT Patient is here today for follow-up. Patient reports that he has been feeling well. He continues with PPI and H2 nubia daily and symptoms of acid reflux are suppressed. Patient denies any dyspepsia, dysphagia or odynophagia. Patient denies any melena, hematochezia, unintentional weight loss or ribbon like stools. Liver enzymes improved. Patient will be due to go for liver ultrasound with elastography again. Patient denies any GI concerning symptoms. Patient admits that he needs to try to lose weight [facility] Medical History DICK on CPAP Obesity Transaminitis Inflamed sebaceous cyst (12/24/22) Diverticulosis Aneurysm Nonalcoholic steatohepatitis (ROOT) Surgical History History of resection of rib History of appendectomy History of repair of right rotator cuff Hx of colonoscopy History of knee replacement Social History Are you a primary acute care registered nurse to a significant other at home: No Do you presently have visiting nurse or other home services: No Alcohol intake: current Alcohol intake frequency: holidays/special occasions only Patient Tobacco Use Status: Never used Tobacco Current occupational status: employed 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, 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 Review of Systems Const Denies weight gain and Denies weight loss ENT Reports no additional complaints, Denies dysphagia and Denies odynophagia Card Reports no additional complaints Resp Reports no additional complaints GI Denies abdominal pain, Denies belching, Denies melena, Denies bloating, Denies change in bowel habits, Denies dysphagia, Denies excessive flatus, Denies dyspepsia, Denies heartburn, Denies diarrhea, Denies loose stools, Denies nausea, Denies odynophagia and Denies vomiting Reports no additional complaints Musc Reports no additional complaints Neuro Reports no additional complaints Psych Reports no additional complaints Endo Reports no additional complaints Physical Exam Vital Signs: Last Vital Signs Pulse 76 06/09/24 12:02 BP 126/74 06/09/24 12:02 Pulse Ox 96 06/09/24 12:02 Oxygen Delivery Method Room Air 06/09/24 12:02 BMI result Body Mass Index 37.4 Const General: healthy appearing and no acute distress Nutritional Appearance: obese Orientation/consciousness: patient oriented x3 Resp Effort & Inspection: normal respiratory effort, able to speak in complete sentences, no tracheal deviation and symmetric chest movement Auscultation: clear to auscultation bilaterally Cardio Rate: regular rate GI Inspection: Yes normal to inspection, No distended and Yes obesity Palpation (GI): Soft to palpation, not firm, nontender and No hepatosplenomegaly present Auscultation: normal bowel sounds General: Yes no CVA tenderness Back/Spine/Pelvis Back: no CVA tenderness Skin General skin exam: elasticity normal, turgor normal and dry skin Neuro General: patient oriented x3 Psych Appearance: grossly normal Mental Status: mental status grossly normal Assessment & Plan Assessment & Plan (1) Transaminitis: Code(s): R74.01 - Elevation of levels of liver transaminase levels Category: Medical (2) GERD (gastroesophageal reflux disease): Code(s): K21.9 - Gastro-esophageal reflux disease without esophagitis Qualifiers: Esophagitis presence: without esophagitis Qualified Code(s): K21.9 - Gastro-esophageal reflux disease without esophagitis Plan Continue current PPI therapy and H2 nubia. Avoid dietary triggers and late night snacking. Will repeat liver panel, liver fibrosis and ultrasound with elastography. Patient will return in 6 months, sooner on as needed basis. Encouraged patient to avoid food high in fat. Avoid carbs and salt. High-protein diet recommended. Weight loss and exercise encouraged. Patient will call our office if he will have any GI concerning symptoms. He is agreeable to this plan and verbalizes understanding of instructions. He was given the opportunity to ask questions and all questions answered. Thank you for allowing me to participate in his care Orders: Orders Liver Fibrosis Pnl 5 Months K76.0 - Fatty (change of) liver, not elsewhere classified US abdomen pradhan w elastography 06/09/24 K76.0 - Fatty (change of) liver, not elsewhere classified Liver Panel 5 Months R74.01 - Elevation of levels of liver transaminase levels Coding Level of Care Code Est Pt Level 3 (62890) Diagnoses Transaminitis R74.01 Gastroesophageal reflux disease without esophagitis K21.9 Esophagitis presence: without esophagitis Time Spent (min) 25 Comment 15 minutes spent with patient and additional 10 minutes spent reviewing his records
[2024-06-09 12:02] VITALS: BP 126/74; PULSE 76; O2SAT 96; BMI 37.4
== END 2024-06-09 13:33 | disposition home or self-care (01) ==
PROVIDERS: PCP Nurse Practitioner Family; Visit Provider Nurse Practitioner Family
DX: R74.01 Elevation of levels of liver transaminase levels (principal); K21.9 Gastro-esophageal reflux disease without esophagitis
CPT/HCPCS: 99213

== ENCOUNTER → 2024-06-09 11:54 | Outpatient (BNVA) | payer OTHER, SELFPAY | PROVIDERS: PCP Nurse Practitioner Family; Visit Provider Nurse Practitioner Family ==

== ENCOUNTER 2024-07-02 08:17 | Outpatient (REF) | payer OTHER, SELFPAY ==
--- NOTE | ~2024-07-02 | US_ITS ---
EXAMINATION: US ABDOMEN LIMITED WITH LIVER ELASTOGRAPHY CLINICAL INFORMATION: Hepatic steatosis. COMPARISON: None available. TECHNIQUE: Real-time imaging of the abdominal viscera. Noninvasive ultrasound liver fibrosis assessment is performed using Paul ElastPQ point quantification shear wave elastography (pSWE) with a 5 MHz transducer. Multiple elastography samples are obtained. FINDINGS: PANCREAS: Could not be seen secondary to overlying bowel gas. LIVER: The liver is enlarged measuring 18 cm in greatest length with increased echogenicity consistent with hepatic steatosis. No focal lesion or intrahepatic biliary duct dilatation. The right lobe measures 18.0 cm in length. The left lobe measures 12.6 cm in length. Portal venous flow is hepatopedal. Shear wave elastography provides a median stiffness of 1.81 m/s (reference: normal median stiffness is 0.81 - 1.22 m/s). The IQR/median stiffness to assess sampling precision is 0.06 (reference: optimal IQR/median stiffness is under 0.3). GALLBLADDER: Normal. The gallbladder is physiologically distended without evidence of stones, sludge, polyps, wall thickening or pericholecystic fluid. COMMON BILE DUCT: Normal in caliber measuring 0.3 cm in diameter. RIGHT KIDNEY: Normal. No hydronephrosis. No renal calculi or focal parenchymal lesions. The kidney measures 11.6 cm in maximum dimension. FREE FLUID: None. US/US abdomen pradhan w elastography IMPRESSION: 1. Enlarged fatty liver. 2. Elastography: Liver elastography measurements are consistent with a moderate risk for clinically significant liver fibrosis (METAVIR Stage F2-F3). Electronically signed by: Daniel Yin MD 07/07/2024 03:09 PM EDT
== END 2024-07-02 08:18 | disposition home or self-care (01) ==
LOC: HO.US 08:17
PROVIDERS: Visit Provider Nurse Practitioner Family
DX: K76.0 Fatty (change of) liver, not elsewhere classified (principal)
CPT/HCPCS: 76705; 76981

== ENCOUNTER 2024-07-28 12:14 | Outpatient (REF) | payer OTHER, SELFPAY ==
[2024-07-28 14:09] LABS: B Type Natriuretic Peptide 35 pg/mL (<100)
[2024-07-28 14:24] LABS: Prostate Specific Antigen Scr 1.03 ng/mL (<0.05-4.0)
[2024-07-28 14:29] LABS: Thyroid Stimulating Hormone 1.04 uIU/mL (0.32-4.0)
== END 2024-07-28 12:15 | disposition home or self-care (01) ==
LOC: HO.HMGCLDS 12:14
PROVIDERS: PCP Family Medicine; Visit Provider Family Medicine
DX: E66.01 Morbid (severe) obesity due to excess calories (principal); I72.8 Aneurysm of other specified arteries; M79.673 Pain in unspecified foot; R60.0 Localized edema; Z12.5 Encounter for screening for malignant neoplasm of prostate
CPT/HCPCS: 36415; 83880; 84153; 84443

== ENCOUNTER 2024-12-01 15:46 | Outpatient (AMB) | payer OTHER, SELFPAY ==
--- NOTE | 2024-12-01 15:52 | MHC.OFFWIV ---
Intake Vital Signs 12/01/24 16:07 Weight 286 lb BP 124/80 Blood Pressure Location Lt brachial Position Sitting Pulse 70 Pulse Source Pulse Oximeter Pulse Oximetry (%) 95 Oxygen Delivery Method Room Air Intake Visit Reasons: EP RT hand cut on blade (no WC) Intake Note: Patient here for laceration on right hand that happened about 1 hour ago. Patient Tobacco Use Status: Never used Tobacco Allergies No Known Allergies Allergy (Verified 12/01/24 16:08) Do you need a note to return to daycare/school/sports/work: No HPI HPI Comments History of Present Illness Details R hand cut on vinyl hose Blade jammed into R thumb He said thumb feels throbbing discomfort R hand dominant last TDAP; 03/2021 Throbbing is 03/29 No medicine for it He didnt clean it wel [facility] Medical History DIKC on CPAP Obesity Transaminitis Inflamed sebaceous cyst (12/24/22) Diverticulosis Aneurysm Nonalcoholic steatohepatitis (ROOT) Surgical History History of resection of rib History of appendectomy History of repair of right rotator cuff Hx of colonoscopy History of knee replacement Social History Are you a primary director critical care to a significant other at home: No Do you presently have visiting nurse or other home services: No Alcohol intake: current Alcohol intake frequency: holidays/special occasions only Patient Tobacco Use Status: Never used Tobacco Current occupational status: employed 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 Speaking full sentences. Skin: Warm dry throughout R hand thenar eminence on palm +1cm linear lac. Slow active bleed with palpation. No visualized FB. No surrounding erythema Respiratory: No respiratory distress Cardiac: Radial pulse intact MSK:+ full ROM digits R hand. TTP R thenar eminence. Neurology: Alert. No aphasia or facial droop. Gait without abnormality Psych: Good mood and affect Office Procedures Laceration Repair Procedure Location: R thenar eminence palm Text: After discussion of risk and benefits, verbal informed consent was obtained. The area was cleaned with saline and irrigated. No foreign material or devitalized tissue. Wound edges were approximated and closed using skin adhesive glue. Pt tolerated well. Wound care instructions were given. The patient was instructed to return for increased redness or red streaking, pain, swelling, pus, fevers, chills, or any other signs or symptoms of infection or worsening. Assessment & Plan Assessment & Plan (1) Laceration of palm: Code(s): S61.419A - Laceration without foreign body of unspecified hand, initial encounter Qualifiers: Encounter type: initial encounter Laterality: right Qualified Code(s): S61.411A - Laceration without foreign body of right hand, initial encounter Plan: See procedure note Hand out for dermabond type skin adhesive given for care instructions We talked abount infection symptoms to monitor for Ibuprofen and cold compress Cover while at work Call with concerns Coding Level of Care Code Est Pt Level 3 (09581) Diagnoses Laceration of right palm, initial encounter S61.411A Encounter type: initial encounter Laterality: right
[2024-12-01 16:07] VITALS: BP 124/80; PULSE 70; O2SAT 95
--- OUTSIDE RECORDS SUMMARY | 2024-12-01 16:30 | XMS_ITS | Continuity of Care Document ---
Author Organization [facility] Address [address] [place] [address] Phone Care Team Providers Care Clinical Evaluator Name Role Phone Javon Monreal MD Unavailable Unavailable Procedures Procedure Date HEART SCAN (CALCIUM SCORE) Advance Directives Directive Yes / No Effective Date File Name No Information Encounters Encounter Description Practice Location Reason(s) For Visit Diagnoses Date Provider Providers Copied on Encounter [facility], [address] [place], [place] [address], [id number], tel:[phone] 0 Fabián [facility] No Information 4 Jocelin Alejandro. [address], [address], [place], [id number] , [place]. tel:[phone] Referring Provider: Jose Guadalupe Corea, [address], [place], [address]. tel:[phone] Family History Family Member Type Diagnosis Age At Onset No Information Payers Payer name Insurance type Covered constitution party ID Authoriza tion(s) No Information Social [...]
== END 2024-12-01 16:51 | disposition home or self-care (01) ==
PROVIDERS: PCP Family Medicine; Visit Provider Physician Assistant
DX: S61.411A Laceration without foreign body of right hand, initial encounter (principal)

== ENCOUNTER → 2024-12-01 15:46 | Outpatient (BNVA) | payer OTHER, SELFPAY | PROVIDERS: PCP Family Medicine | DX: S61.411A Laceration without foreign body of right hand, initial encounter (principal); W45.8XXA Other foreign body or object entering through skin, initial encounter; Y93.9 Activity, unspecified; Y92.9 Unspecified place or not applicable; Y99.9 Unspecified external cause status | CPT/HCPCS: 12001 ==

== ENCOUNTER 2024-12-06 07:34 | Outpatient (REF) | payer OTHER, SELFPAY ==
[2024-12-06 10:44] LABS: Alanine Aminotransferase 41 U/L (0-40); Alkaline Phosphatase 52 U/L (39-117); Aspartate Amino Transferase 32 U/L (5-37); Bilirubin Direct 0.2 mg/dL (0.0-0.5); Bilirubin Total 0.5 mg/dL (0.0-1.0); Total Protein 6.8 g/dL (6.5-8.0)
[2024-12-13 14:34] LABS: FIB-ALT 34 U/L (9-46); FIB-Alpha-2-Macroglobulin 244 mg/dL (106-279); FIB-Apolipoprotein A1 174 mg/dL (94-176); FIB-GGT 27 U/L (3-70); FIB-Haptoglobin 68 mg/dL (43-212); FIB-Total Bilirubin 0.5 mg/dL (0.2-1.2); Liver Fibrosis Score 0.36; Liver Fibrosis Stage F1-F2; Nec Inflam Act Grade A0-A1; Nec Inflam Act Score 0.19; Reference ID 5350096
== END 2024-12-06 07:35 | disposition home or self-care (01) ==
LOC: HO.HMGCLDS 07:34
PROVIDERS: PCP Family Medicine; Visit Provider Nurse Practitioner Family
DX: K76.0 Fatty (change of) liver, not elsewhere classified (principal); R74.01 Elevation of levels of liver transaminase levels
CPT/HCPCS: 36415; 80076; 81596

== ENCOUNTER 2024-12-08 11:39 | Outpatient (AMB) | payer OTHER, SELFPAY ==
--- NOTE | 2024-12-08 11:44 | MHC.OFFVIS ---
Vital Signs 12/08/24 11:45 Height 6 ft 2 in Weight 265 lb BMI 34.0 BP 115/59 L Blood Pressure Location Lt brachial Position Sitting Pulse 67 Pulse Oximetry (%) 99 Oxygen Delivery Method Room Air Intake Visit Reasons: 6 mos f/u per Corrie Intake Note: Patient 6 month follow up for GERD. Patient denies any GI issues for today. Industrial Photographer Required: No Accompanied by: Self / Same As Patient Allergies No Known Allergies Allergy (Verified 12/08/24 11:44) HPI HPI 6 mos f/u per Corrie: Details: LAST VISIT: Transaminitis GERD (gastroesophageal reflux disease) Plan Continue current PPI therapy and H2 nubia. Avoid dietary triggers and late night snacking. Will repeat liver panel, liver fibrosis and ultrasound with elastography. Patient will return in 6 months, sooner on as needed basis. Encouraged patient to avoid food high in fat. Avoid carbs and salt. High-protein diet recommended. Weight loss and exercise encouraged. Patient will call our office if he will have any GI concerning symptoms. He is agreeable to this plan and verbalizes understanding of instructions. He was given the opportunity to ask questions and all questions answered. ? Thank you for allowing me to participate in his care Orders Orders Liver Fibrosis Pnl 5 Months K76.0 US abdomen pradhan w elastography 06/09/24 K76.0 Liver Panel 5 Months R74.01 TODAY'S VISIT Patient is here today for follow-up and to discuss ultrasound results and lab results. Liver panel improved. Patient reports that he lost good amount of weight. 26 lb since May (6 months). Patient reports that he is watching what he eats, tries to exercise. Reports that he used to go for bike rides, however since his knee surgery patient is having trouble bend or hyperextend his need and unable to go for bike rides. Patient however reports that he can go for walks and planning to do that when weather improves. Patient denies any GI concerning symptoms. Currently he is taking his PPI as well as H2 nubia. He continues to drink soda, however he decreased the amount that he used to drink. Patient is trying to eat mostly protein and avoid eating high fat or carbs. Patient reports that he is moving her bowels well without any issues. Denies any abdominal pain or discomfort. Liver elastography show possible F1 F2 fibrosis. Liver fibrosis panel is pending [facility] Medical History DICK on CPAP Obesity Transaminitis Inflamed sebaceous cyst (12/24/22) Diverticulosis Aneurysm Nonalcoholic steatohepatitis (ROOT) Surgical History History of resection of rib History of appendectomy History of repair of right rotator cuff Hx of colonoscopy History of knee replacement Social History Are you a primary home visit field care manager to a significant other at home: No Do you presently have visiting nurse or other home services: No Alcohol intake: current Alcohol intake frequency: holidays/special occasions only Patient Tobacco Use Status: Never used Tobacco Current occupational status: employed 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, 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 Review of Systems Const Denies weight gain and Denies weight loss ENT Reports no additional complaints, Denies dysphagia and Denies odynophagia Card Reports no additional complaints Resp Reports no additional complaints GI Denies abdominal pain, Denies belching, Denies melena, Denies bloating, Denies change in bowel habits, Denies dysphagia, Denies excessive flatus, Denies dyspepsia, Denies heartburn, Denies diarrhea, Denies loose stools, Denies nausea, Denies odynophagia and Denies vomiting Reports no additional complaints Musc Reports no additional complaints Neuro Reports no additional complaints Psych Reports no additional complaints Endo Reports no additional complaints Physical Exam Vital Signs: Last Vital Signs Pulse 67 12/08/24 11:45 BP 115/59 L 12/08/24 11:45 Pulse Ox 99 12/08/24 11:45 Oxygen Delivery Method Room Air 12/08/24 11:45 BMI result Body Mass Index 34.0 Const General: healthy appearing and no acute distress Nutritional Appearance: obese Orientation/consciousness: patient oriented x3 Resp Effort & Inspection: normal respiratory effort, able to speak in complete sentences, no tracheal deviation and symmetric chest movement Auscultation: clear to auscultation bilaterally Cardio Rate: regular rate GI Inspection: Yes normal to inspection, No distended and Yes obesity Palpation (GI): Soft to palpation, not firm, nontender and No hepatosplenomegaly present Auscultation: normal bowel sounds General: Yes no CVA tenderness Back/Spine/Pelvis Back: no CVA tenderness Skin General skin exam: elasticity normal, turgor normal and dry skin Neuro General: patient oriented x3 Psych Appearance: grossly normal Mental Status: mental status grossly normal Results Reviewed Results Reviewed: ABDOMINAL ULTRASOUND WITH ELASTOGRAPHY FINDINGS: PANCREAS: Could not be seen secondary to overlying bowel gas. LIVER: The liver is enlarged measuring 18 cm in greatest length with increased echogenicity consistent with hepatic steatosis. No focal lesion or intrahepatic biliary duct dilatation. The right lobe measures 18.0 cm in length. The left lobe measures 12.6 cm in length. Portal venous flow is hepatopedal. Shear wave elastography provides a median stiffness of 1.81 m/s (reference: normal median stiffness is 0.81 - 1.22 m/s). The IQR/median stiffness to assess sampling precision is 0.06 (reference: optimal IQR/median stiffness is under 0.3). GALLBLADDER: Normal. The gallbladder is physiologically distended without evidence of stones, sludge, polyps, wall thickening or pericholecystic fluid. COMMON BILE DUCT: Normal in caliber measuring 0.3 cm in diameter. RIGHT KIDNEY: Normal. No hydronephrosis. No renal calculi or focal parenchymal lesions. The kidney measures 11.6 cm in maximum dimension. FREE FLUID: None. US/US abdomen pradhan w elastography IMPRESSION: 1. Enlarged fatty liver. 2. Elastography: Liver elastography measurements are consistent with a moderate risk for clinically significant liver fibrosis (METAVIR Stage F2-F3). Laboratory Tests 01/16/24 05/19/24 12/06/24 12:03 06:42 07:37 AST 53 H 42 H 32 ALT 75 H 68 H 41 H Alkaline Phosphatase 52 Assessment & Plan Assessment & Plan (1) Transaminitis: Code(s): R74.01 - Elevation of levels of liver transaminase levels Category: Medical (2) GERD (gastroesophageal reflux disease): Code(s): K21.9 - Gastro-esophageal reflux disease without esophagitis Qualifiers: Esophagitis presence: esophagitis presence not specified Qualified Code(s): K21.9 - Gastro-esophageal reflux disease without esophagitis (3) ROOT (nonalcoholic steatohepatitis): Code(s): K75.81 - Nonalcoholic steatohepatitis (ROOT) (4) Hepatomegaly: Code(s): R16.0 - Hepatomegaly, not elsewhere classified Plan We will repeat liver panel in 5 months and ferritin before his next visit as well as limited ultrasound with liver elastography. Patient will continue diet and exercise. Liver fibrosis panel is pending will call patient with results. Previously liver fibrosis panel couple years ago show F2 fibrosis. Patient will continue taking his PPI and H2 nubia as ordered. Patient reports that his brother was diagnosed with hemochromatosis and liver cirrhosis. We have checked DNA for hemochromatosis and that was negative back in 2021. He will call our office if he will have any GI concerning symptoms. He is agreeable to current plan of care and verbalizes understanding of instructions. He was given the opportunity to ask questions and all questions answered. Thank you for allowing me to participate in his care Orders: Orders Liver Panel 5 Months R74.01 - Elevation of levels of liver transaminase levels US abdomen pradhan w elastography 5 Months K76.0 - Fatty (change of) liver, not elsewhere classified Ferritin 5 Months R74.8 - Abnormal levels of other serum enzymes Coding Level of Care Code Est Pt Level 3 (87663) Diagnoses Transaminitis R74.01 Gastroesophageal reflux disease, unspecified whether esophagitis present K21.9 Esophagitis presence: esophagitis presence not specified ROOT (nonalcoholic steatohepatitis) K75.81 Hepatomegaly R16.0 Time Spent (min) 30 Comment 20 minutes spent with patient and additional 10 minutes spent reviewing his records
[2024-12-08 11:45] VITALS: BP 115/59; PULSE 67; O2SAT 99; BMI 34.0
--- OUTSIDE RECORDS SUMMARY | 2024-12-08 12:16 | XMS_ITS | Continuity of Care Document ---
Author Organization [facility] Address [address] [place] [address] Phone Care Team Providers Care Outside Plant Cable Engineer Name Role Phone Javon Monreal MD Unavailable Unavailable Procedures Procedure Date HEART SCAN (CALCIUM SCORE) Advance Directives Directive Yes / No Effective Date File Name No Information Encounters Encounter Description Practice Location Reason(s) For Visit Diagnoses Date Provider Providers Copied on Encounter [facility], [address] [place], [place] [address], [id number], tel:[phone] 0 Fabián [facility] No Information 4 Jocelin Alejandro. [address], [address], [place], [id number] , [place]. tel:[phone] Referring Provider: Jose Guadalupe Corea, [address], [place], [address]. tel:[phone] Family History Family Member Type Diagnosis Age [...]
== END 2024-12-08 12:12 | disposition home or self-care (01) ==
PROVIDERS: PCP Nurse Practitioner Family; Visit Provider Nurse Practitioner Family
DX: R74.01 Elevation of levels of liver transaminase levels (principal); K21.9 Gastro-esophageal reflux disease without esophagitis; K75.81 Nonalcoholic steatohepatitis (NASH); R16.0 Hepatomegaly, not elsewhere classified
CPT/HCPCS: 99213

== ENCOUNTER → 2024-12-08 11:39 | Outpatient (BNVA) | payer OTHER, SELFPAY | PROVIDERS: PCP Nurse Practitioner Family; Visit Provider Nurse Practitioner Family ==

== ENCOUNTER 2025-04-06 20:32 | Emergency (ER) | payer OTHER, SELFPAY ==
[2025-04-06 20:34] VITALS: BP 138/75; PULSE 68; RESP 20; TEMP 36.1; O2SAT 95; BMI 34.1
--- NOTE | 2025-04-06 20:37 | ECG_ITS ---
Test Reason : PAIN Blood Pressure : */* mmHG Vent. Rate : 64 BPM Atrial Rate : 64 BPM P-R Int : 144 ms QRS Dur : 88 ms QT Int : 410 ms P-R-T Axes : 28 0 20 degrees QTcB Int : 422 ms Normal sinus rhythm Normal ECG No previous ECGs available Referred By: Saqib Leary Electronically Signed By: Balaji Valente
--- NOTE | 2025-04-06 20:38 | ED_ITS ---
HPI - General Adult General Chief complaint: Dizziness Stated complaint: nausea, dizzy, chills Time Seen by Provider: 04/07/25 02:32 Source: patient Limitations: no limitations History of Present Illness ED Provider: Madelin Dan PA-C HPI narrative: 59-year-old male with a history of PARKER, left subclavian aneurysm s/p repair, presents with a near syncopal episode. Patient states he was working outside, he began to feel dizzy, he became diaphoretic was profusely sweating and nauseous. The patient went inside, sat down, his symptoms seemed to improve. Patient ate, then returned outside for short period, he developed similar symptoms. Denies chest pain, shortness of breath, palpitations, pain of upper extremity, weakness, discoloration or paresthesia during these episodes. Related Data Home Medications ?Medication ?Instructions ?Recorded ?Confirmed magnesium 1 tab PO DAILY 08/27/2201/19 multivitamin 1 tab PO DAILY 08/27/2201/19 Previous Rx's ?Medication ?Instructions ?Recorded cyclobenzaprine 10 mg tablet 10 mg PO TID PRN muscle s pasm #10 05/25/24 tabs lidocaine 5 % topical patch 1 patch topical DAILY #15 ea 05/25/24 famotidine 20 mg tablet (Pepcid) 20 mg PO BEDTIME #90 tabs 07/14/24 vitamin E (dl, acetate) 450 mg 450 mg PO DAILY #90 cap s 08/04/24 (1,000 unit) capsule omeprazole 20 mg capsule,delayed 20 mg PO DAILY #90 ca ps 01/26/25 release Allergies Allergy/AdvReac Type Severity Reaction Status Date / Time No Known Allergies Allergy Verified 04/06/25 20:38 Review of Systems 2 Review of Systems: Yes all other systems are reviewed and are negative Constitutional: Constitutional: Denies fatigue and Denies fever(s) ENT: Reports dizziness Cardiovascular: Cardiovascular: Denies chest pain and Denies dyspnea Respiratory: Respiratory: Denies dyspnea Gastrointestinal: Gastrointestinal: Denies abdominal pain, Reports nausea and Denies vomiting Musculoskeletal: Musculoskeletal: Denies muscle weakness, Denies numbness and Denies tingling Integumentary/Breasts: Skin/Breast: Denies change in pigmentation and Denies skin pain Neurologic: Reports dizziness, Denies numbness and Denies tingling Endocrine: Endocrine: Denies fatigue [facility] Past Medical History Attestation statement: The following information was validated with the patient. Medical History DICK on CPAP Obesity Transaminitis Inflamed sebaceous cyst (12/24/22) Diverticulosis Aneurysm Nonalcoholic steatohepatitis (PARKER) Surgical History History of resection of rib History of appendectomy History of repair of right rotator cuff Hx of colonoscopy History of knee replacement Social History Social History Are you a primary director career services to a significant other at home: No Do you presently have visiting nurse or other home services: No Alcohol intake: current Alcohol intake frequency: holidays/special occasions only Patient Tobacco Use Status: Never used Tobacco Smoked in Last 30 Days: No Substance Use Type: Marijuana Substance Use Frequency: Occasionally Advance Directives: No Advance Directives Information Provided: No Current occupational status: employed 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, 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 Physical Exam ED Vital Signs: Vital Signs - 24 hr 04/06/25 20:34 04/06/25 21:37 04/06/25 21:44 Temperature 97 F 98.2 F Pulse Rate 68 68 70 Respiratory Rate 20 16 Blood Pressure 138/75 110/63 100/64 Pulse Oximetry 95 95 Oxygen Delivery Method Room Air Room Air 04/06/25 21:47 04/06/25 21:52 04/07/25 00:16 Temperature 98.2 F Pulse Rate 71 75 63 Respiratory Rate 18 Blood Pressure 111/66 109/69 103/63 Pulse Oximetry 95 Oxygen Delivery Method Room Air 04/07/25 00:56 04/07/25 03:01 04/07/25 03:46 Temperature 98.0 F 98.0 F Pulse Rate 65 60 60 Respiratory Rate 16 16 16 Blood Pressure 99/58 L 103/63 103/63 Pulse Oximetry 94 95 95 Oxygen Delivery Method Room Air Room Air Room Air BMI result Body Mass Index 34.1 Const Other: Alert well-appearing Orientation/consciousness: patient oriented x3 Resp Effort & Inspection: normal respiratory effort Cardio Other: Normal peripheral perfusion, readily palpable ulnar and radial pulses of the left upper extremity the limb is warm and well-perfused, Skin Other: Warm dry no rash Neuro General: patient oriented x3, gait normal, no focal motor deficits and CN's II- XI intact bilaterally Extrem Other: Strength 5/5 bilateral upper extremities Psych Other: Cooperative Course Course Course Narrative: RME, this is a rapid medical exam performed by Juventino Leary please refer to primary provider for complete H&P- 59-year-old male presents for evaluation of lightheadedness and dizziness. Patient reports that he was out in the [place] doing work when he became lightheaded, nauseous and dizzy. He did not have any chest pain or shortness of breath. His states that he was ?stacy in the face. He denies any pain whatsoever but reports ?I do not feel right. ? plan for cardiac workup he denies any history of coronary artery disease Medications Administered Discontinued Medications Generic Name Dose Route Start Last Admin Trade Name Freq PRN Reason Stop Dose Admin Lactated Ringer's 1,000 mls @ 999 mls/hr 04/07/25 03:00 04/07/25 03:39 Lr IV 04/07/25 04:00 Infused .Q1H1M BENJY Infusion Medical Decision Making Medical Decision Making [facility] Narrative: 59-year-old male with a history of PARKER, left subclavian aneurysm s/p repair, presents with a near syncopal episode. Patient states he was working outside, he began to feel dizzy, he became diaphoretic was profusely sweating and nauseous. The patient went inside, sat down, his symptoms seemed to improve. Patient ate, then returned outside for short period, he developed similar symptoms. Denies chest pain, shortness of breath, palpitations, pain of upper extremity, weakness, discoloration or paresthesia during these episodes. Problem: Left subclavian aneurysm , Parker History: Per patient and his I have considered the following differential diagnoses: Heat stroke, vasovagal near-syncope, dissection, hypoglycemia, ACS Plan: I did considered dissection of his subclavian aneurysm, however he is neurovascularly intact, he never had any symptoms involving the left upper extremity. I do feel he likely had a near syncopal episode in the setting of heat stroke. Screening labs were obtained, he is not clinically dehydrated we will give a L of LR. Thought about ACS, the story is quite concerning, EKG and troponin obtained. The patient could have also been hypoglycemic, he does have PARKER, he could have some alteration in gluconeogenesis. I have independently reviewed the following tests: Labs: No leukocytosis, not anemic, no electrolyte abnormality, troponin negative EKG: Normal sinus rhythm, rate of 64, no ischemic changes no ectopy QTC 422 Lab Data 04/06/25 20:50 04/06/25 20:50 Labs: Lab Results 04/06/25 Range/Units 20:50 WBC 8.4 (4.8-10.8) X10*3/uL RBC 4.51 L (4.60-5.80) X10*6/uL Hgb 13.7 L (14.0-18.0) g/dl Hct 39.0 L (42.0-52.0) % MCV 86.5 (80.0-98.0) fL MCH 30.4 (27.0-33.0) pg MCHC 35.1 (31.0-36.0) g/dl RDW 12.0 (11.0-16.0) % Plt Count 177 (160-400) X10*3/uL MPV 9.1 L (9.4-12.4) fL Immature Gran % (Auto) 0.2 (0.0-0.4) % Neut % (Auto) 61.7 (45-73) % Lymph % (Auto) 28.9 (20-40) % [place] % (Auto) 7.6 (2-11) % Eos % (Auto) 1.1 (0-4) % Baso % (Auto) 0.5 (0-2) % Lymph # (Auto) 2.4 (1.2-4.9) X10*3/uL [place] # (Auto) 0.6 (0.1-1.2) X10*3/uL Eos # (Auto) 0.1 (0.0-0.4) X10*3/uL Baso # (Auto) 0.0 (0.0-0.2) X10*3/uL Abs Immat Gran (auto) 0.02 (0.00-0.03) X10*3/uL Absolute Neuts (auto) 5.2 (2.0-8.3) x10*3/uL Absolute Nucleated RBC 0.000 (0.0-0.012) X10*3/uL Nucleated RBC % (auto) 0.0 (0.0-0.2) /100WBC Sodium 140 (135-145) mmol/L Potassium 4.3 (3.3-5.1) mmol/L Chloride 108 (96-108) mmol/L Carbon Dioxide 25 (22-29) mmol/L Anion Gap 11 L (12-20) BUN 18 H (9-16) mg/dL Creatinine 1.07 (0.5-1.4) mg/dL Estim Creat Clear Calc 101.3 Estimated GFR > 60 Random Glucose 110 (60-115) mg/dL Calcium 9.4 (8.4-10.2) mg/dL Magnesium 2.2 (1.6-2.6) mg/dL Total Bilirubin 0.4 (0.0-1.0) mg/dL AST 38 H (5-37) U/L ALT 52 H (0-40) U/L Alkaline Phosphatase 50 (39-117) U/L Troponin I High Sens < 2.7 (<3.5-35.0) ng/L Total Protein 6.4 L (6.5-8.0) g/dL Albumin 4.2 (3.5-5.0) g/dL Lipase 22 (8-78) U/L Discharge Plan Discharge Clinical Impression: Vasovagal near syncope, Heat stroke Patient Disposition: Home, Self-Care Instructions: Liquids and Hydration for Athletes (ED), Heatstroke (ED), Near Syncope (ED) Additional Instructions: All of your screening labs were normal including a cardiac enzyme. There were no concerning changes on your EKG. I do believe your symptoms were secondary to a near syncopal episode likely precipitated by heat stroke. See home care instructions. Follow up with your primary care provider as needed. Prescriptions: No Action famotidine [Pepcid] 20 mg tablet 20 mg PO BEDTIME Qty: 90 3RF vitamin E (dl, acetate) 450 mg (1,000 unit) capsule 450 mg PO DAILY Qty: 90 2RF omeprazole 20 mg capsule,delayed release(DR/EC) 20 mg PO DAILY Qty: 90 2RF multivitamin Tablet 1 tab PO DAILY magnesium Tablet 1 tab PO DAILY cyclobenzaprine 10 mg tablet 10 mg PO TID PRN (Reason: muscle spasm) Qty: 10 0RF lidocaine 5 % adhesive patch,medicated 1 patch topical DAILY Qty: 15 0RF Rx Instructions: leave on most painful area for up to 12 hrs Interventions: ED Discharge Assessment Last Done: 04/07/25 03:46 Discharge Date/Time: 04/07/25 03:47 Print Language: Chinese
[2025-04-06 20:55] LABS: MANUAL DIFF FLAG NO
[2025-04-06 20:56] LABS: Basophils Percent Auto 0.5 % (0-2); Eosinophils Absolute Auto 0.1 X10*3/uL (0.0-0.4); Eosinophils Percent Auto 1.1 % (0-4); Hemoglobin 13.7 g/dl (14.0-18.0); Imm Gran Abs Auto 0.02 X10*3/uL (0.00-0.03); Imm Gran Pct Auto 0.2 % (0.0-0.4); Lymphocytes Absolute Auto 2.4 X10*3/uL (1.2-4.9); Lymphocytes Percent Auto 28.9 % (20-40); Mean Corpuscular HGB Conc 35.1 g/dl (31.0-36.0); Mean Corpuscular Hemoglobin 30.4 pg (27.0-33.0); Mean Corpuscular Volume 86.5 fL (80.0-98.0); Mean Platelet Volume 9.1 fL (9.4-12.4); Monocytes Absolute Auto 0.6 X10*3/uL (0.1-1.2); Monocytes Percent Auto 7.6 % (2-11); Neutrophils Absolute Auto 5.2 x10*3/uL (2.0-8.3); Neutrophils Percent Auto 61.7 % (45-73); Platelet Count 177 X10*3/uL (160-400); Red Blood Count 4.51 X10*6/uL (4.60-5.80); White Blood Count 8.4 X10*3/uL (4.8-10.8)
[2025-04-06 21:12] LABS: Alanine Aminotransferase 52 U/L (0-40); Albumin Level 4.2 g/dL (3.5-5.0); Alkaline Phosphatase 50 U/L (39-117); Anion Gap 11 (12-20); Aspartate Amino Transferase 38 U/L (5-37); Bilirubin Total 0.4 mg/dL (0.0-1.0); Blood Urea Nitrogen 18 mg/dL (9-16); Calcium 9.4 mg/dL (8.4-10.2); Carbon Dioxide 25 mmol/L (22-29); Chloride 108 mmol/L (96-108); Creatinine Clr Calc Pharmacy 101.3; Estimated Glomerular Filt Rate > 60; Glucose Random 110 mg/dL (60-115); Lipase 22 U/L (8-78); Magnesium 2.2 mg/dL (1.6-2.6); Potassium 4.3 mmol/L (3.3-5.1); Sodium 140 mmol/L (135-145); Total Protein 6.4 g/dL (6.5-8.0)
[2025-04-06 21:26] LABS: Troponin-I High Sensitivity < 2.7 ng/L (<3.5-35.0)
[2025-04-06 21:37] VITALS: BP 110/63; PULSE 68; RESP 16; TEMP 36.8; O2SAT 95
[2025-04-06 21:44] VITALS: BP 100/64; PULSE 70
[2025-04-06 21:47] VITALS: BP 111/66; PULSE 71
[2025-04-06 21:52] VITALS: BP 109/69; PULSE 75
[2025-04-07 00:16] VITALS: BP 103/63; PULSE 63; RESP 18; TEMP 36.8; O2SAT 95
[2025-04-07 00:56] VITALS: BP 99/58; PULSE 65; RESP 16; O2SAT 94
[2025-04-07] MEDS: Lactated Ringers 1,000 ML 999 ML IV (02:59)
[2025-04-07 03:01] VITALS: BP 103/63; PULSE 60; RESP 16; TEMP 36.7; O2SAT 95
[2025-04-07 03:46] VITALS: BP 103/63; PULSE 60; RESP 16; TEMP 36.7; O2SAT 95
== END 2025-04-07 03:47 | disposition home or self-care (01) ==
PROVIDERS: Physician Assistant; Emergency Provider Emergency Medicine
DX: T67.3XXA Heat exhaustion, anhydrotic, initial encounter (principal); R55 Syncope and collapse; X50.9XXA Other and unspecified overexertion or strenuous movements or postures, initial encounter; R11.0 Nausea
CPT/HCPCS: 36415; 80053; 83690; 83735; 84484; 85025; 93005; 96360; 99284; 99285; J7120

== ENCOUNTER → 2025-04-06 20:37 | Outpatient (BNV) | payer OTHER, SELFPAY | PROVIDERS: Emergency Provider Emergency Medicine; Visit Provider Internal Medicine Cardiovascular Disease | DX: R07.9 Chest pain, unspecified (principal) | CPT/HCPCS: 93010 ==

== ENCOUNTER 2025-06-03 06:17 | Outpatient (REF) | payer OTHER, SELFPAY ==
--- OUTSIDE RECORDS SUMMARY | 2014-05-27 09:00 | XMS_ITS | Continuity of Care Document ---
Author Organization [facility] Address [address] [place] [address] Phone Care Team Providers Care Engineering Laboratory Technician Name Role Phone Javon Monreal MD Unavailable Unavailable Procedures Procedure Date HEART SCAN (CALCIUM SCORE) Advance Directives Directive Yes / No Effective Date File Name No Information Encounters Encounter Description Practice Location Reason(s) For Visit Diagnoses Date Provider Providers Copied on Encounter [facility], [address] [place], [place] [address], [id number], tel:[phone] 0 Fabián [facility] No Information 4 Jocelin Alejandro. [address], [address], [place], [id number] , [place]. tel:[phone] Referring Provider: Jose Guadalupe Corea, [address], [place], [address]. tel:[phone] Family History Family Member Type Diagnosis Age At Onset No Information Payers Payer name Insurance type Covered republican ID Authoriza tion(s) No Information Social History [...]
[2025-06-03 10:44] LABS: Alanine Aminotransferase 56 U/L (0-40); Albumin Level 4.0 g/dL (3.5-5.0); Alkaline Phosphatase 54 U/L (39-117); Aspartate Amino Transferase 39 U/L (5-37); Total Protein 6.3 g/dL (6.5-8.0)
[2025-06-03 11:04] LABS: Ferritin 412 ng/mL (20-250)
== END 2025-06-03 06:18 | disposition home or self-care (01) ==
LOC: HO.HMGCLDS 06:17
PROVIDERS: Visit Provider Nurse Practitioner Family
DX: R74.8 Abnormal levels of other serum enzymes (principal); R74.01 Elevation of levels of liver transaminase levels
CPT/HCPCS: 36415; 80076; 82728

== ENCOUNTER 2025-06-13 11:20 | Outpatient (REF) | payer OTHER, SELFPAY ==
--- OUTSIDE RECORDS SUMMARY | 2014-05-27 09:00 | XMS_ITS | Continuity of Care Document ---
Author Organization [facility] Address [address] [place] [address] Phone Care Team Providers Care Vegetable Farming Supervisor Name Role Phone Javon Monreal MD Unavailable Unavailable Procedures Procedure Date HEART SCAN (CALCIUM SCORE) Advance Directives Directive Yes / No Effective Date File Name No Information Encounters Encounter Description Practice Location Reason(s) For Visit Diagnoses Date Provider Providers Copied on Encounter [facility], [address] [place], [place] [address], [id number], tel:[phone] 0 Fabián [facility] No Information 4 Jocelin Alejandro. [address], [address], [place], [id number] , [place]. tel:[phone] Referring Provider: Jose Guadalupe Corea, [address], [place], [address]. tel:[phone] Family History Family Member Type Diagnosis Age At Onset No Information Payers Payer name Insurance type Covered libertarian ID Authoriza tion(s) No Information Social History [...]
--- NOTE | ~2025-06-13 | US_ITS ---
EXAMINATION: US ABDOMEN LIMITED WITH LIVER ELASTOGRAPHY HISTORY: K76.0 - Fatty (change of) liver, not elsewhere classified TECHNIQUE: Real-time grayscale ultrasound imaging of the right upper quadrant was performed and images were reviewed. COMPARISON: Comparison is made with the prior examination dated 07/02/2024. FINDINGS: Liver: The right lobe of the liver measures 17.4 cm in size. The left lobe of the liver measures 11.4 cm in size. The liver demonstrates increased echotexture, consistent with steatosis. No focal mass or intrahepatic biliary ductal dilatation is identified. There is normal hepatopedal flow in the portal vein. Ultrasound elastography of the liver was performed with 10 separate measurements of the liver parenchyma with the patient in the supine position. Measurements were obtained approximately 2 cm below Portia's capsule and perpendicular to the capsule. The median shear wave velocity is 1.68 m/s (previously 1.81 m/s). The interquartile range/median (IQR/median) is 0.04. Gallbladder and biliary tree: The gallbladder is unremarkable, without evidence of calculi, wall thickening, or pericholecystic fluid. There is no sonographic Mcfarland sign. The common bile duct is normal in caliber measuring 4 mm. Right Kidney: The right kidney measures 11.1 cm in length. The right kidney is unremarkable, without evidence of masses, hydronephrosis, or calculi. Pancreas: The pancreas is obscured by bowel gas. Abdominal aorta and inferior vena cava: The visualized portions of the abdominal aorta and inferior vena cava are normal in caliber. There is no free fluid in the right upper quadrant. US/US abdomen pradhan w elastography IMPRESSION: Hepatomegaly and hepatic steatosis. The median shear wave velocity in the liver is 1.68 m/s, corresponding to a median liver stiffness of 8.59 kPa. The IQR/median value is 0.04. This is indicative of a quality data set. Findings are indicative of a low elastography value which rules out advanced chronic liver disease in asymptomatic patients. REFERENCE: Society of Radiologists in Ultrasound Liver Stiffness Thresholds (2019): LIVER STIFFNESS THRESHOLDS: *Shear wave velocity less than 1.3 m/s (Liver Stiffness equal or less than 5 kPa): High probability of being normal. *Shear wave velocity less than 1.7 m/s (Liver Stiffness less than 9 kPa): In the absence of other known clinical signs, rules out compensated advanced chronic liver disease. *Shear wave velocity between 1.7-2.1 m/s (Liver Stiffness 9-13 kPa): Suggestive of compensated advanced chronic liver disease but need further test for confirmation. *Shear wave velocity between 2.1-2.4 m/s (Liver Stiffness 13-17 kPa): Rules in compensated advanced chronic liver disease. *Shear wave velocity greater than 2.4 m/s (Liver Stiffness over 17 kPa): Suggestive of clinically significant portal hypertension. QUALITY OF DATA SET: *IQR/Median value equal or less than 0.15 implies a quality data set. *IQR/Median value over 0.15 implies a poor quality data set. SIGNIFICANT CHANGE FROM PRIOR EXAM: Significant change if liver stiffness measurement is 10% or greater from prior exam. OTHER CONSIDERATIONS: The stage of liver fibrosis may be overestimated in the setting of acute hepatitis, liver inflammation, elevated liver function tests, hepatic vascular congestion, obstructive cholestasis, non-fasting state, and infiltrative diseases such as amyloidosis and lymphoma. In some patients with NAFLD, the liver stiffness thresholds for compensated advanced chronic liver disease may be lower. In causes other than viral hepatitis and NAFLD, liver stiffness thresholds are not well established. Electronically signed by: Zana Virgen MD 06/13/2025 12:17 PM EDT
== END 2025-06-13 11:21 | disposition home or self-care (01) ==
LOC: HO.US 11:20
PROVIDERS: Visit Provider Nurse Practitioner Family
DX: K76.0 Fatty (change of) liver, not elsewhere classified (principal)
CPT/HCPCS: 76705; 76981

== ENCOUNTER → 2025-06-13 11:23 | Outpatient (BNV) | payer OTHER, SELFPAY | PROVIDERS: Visit Provider Radiology Diagnostic Radiology | DX: K76.0 Fatty (change of) liver, not elsewhere classified (principal); R16.0 Hepatomegaly, not elsewhere classified | CPT/HCPCS: 76705 ==

== ENCOUNTER 2025-06-23 15:56 | Outpatient (AMB) | payer OTHER, SELFPAY ==
--- NOTE | 2025-06-23 16:07 | MHC.OFFWIV ---
Intake Vital Signs 06/23/25 16:08 Weight 265 lb BP 110/78 Respiration 16 Pulse 66 Pulse Source Pulse Oximeter Temp 98.8 F Temp Source Oral Pulse Oximetry (%) 94 Oxygen Delivery Method Room Air Intake Visit Reasons: ep rash Patient Tobacco Use Status: Never used Tobacco Allergies No Known Allergies Allergy (Verified 04/06/25 20:38) HPI HPI Comments History of Present Illness Details History of Present Illness - The patient is a 59-year-old male presenting with a worsening skin condition initially diagnosed as eczema on his right LE. Was seen by [facility], they didn't seem very worried and gave him triamcinolone cream. - The skin condition was diagnosed a few months ago as eczema, and the patient was prescribed triamcinolone cream. - Despite using the cream as directed for 2 weeks, the condition has worsened, with the affected area increasing in size. - The patient reports no warmth or itching associated with the rash. - The patient has been advised to limit the use of triamcinolone to avoid skin thinning. Physical Exam General: Cooperative, healthy appearing, comfortable, no acute distress and well developed Orientation: Patient oriented x3 Limitations: No limitations Head: Normal to inspection Ears: Hearing grossly normal bilaterally Nose: Normal External nose present Face and sinus: Normal facial exam Eyes: Appearance normal, both eyes and all related structures Neck: Normal visual inspection and Yes full ROM Respiratory: Normal respiratory effort and able to speak in complete sentences. Skin: right LE with 6cm x 3cm oval area of erythema with raised edges, no warmth, blanches Neuro: Patient oriented x3 Extremities: Normal to inspection [facility] Medical History DICK on CPAP Obesity Transaminitis Inflamed sebaceous cyst (12/24/22) Diverticulosis Aneurysm Nonalcoholic steatohepatitis (ROOT) Surgical History History of resection of rib History of appendectomy History of repair of right rotator cuff Hx of colonoscopy History of knee replacement Social History Are you a primary urgent care physician assistant to a significant other at home: No Do you presently have visiting nurse or other home services: No Alcohol intake: current Alcohol intake frequency: holidays/special occasions only Patient Tobacco Use Status: Never used Tobacco Substance Use Type: Marijuana Current occupational status: employed 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 - Discontinue triamcinolone cream due to lack of improvement and potential skin thinning. - Possible Fungal Infection - Initiate treatment with ketoconazole cream, applied twice daily. - Schedule follow-up with [facility] if no improvement is observed. Medications: New ketoconazole 2% 1 appl topical BID 60 grams 0RF Coding Level of Care Code New Pt Level 3 (58283) Diagnoses Tinea corporis B35.4
[2025-06-23 16:08] VITALS: BP 110/78; PULSE 66; RESP 16; TEMP 37.1; O2SAT 94
== END 2025-06-23 17:06 | disposition home or self-care (01) ==
PROVIDERS: Visit Provider Physician Assistant
DX: B35.4 Tinea corporis (principal)

== ENCOUNTER 2025-07-01 07:54 | Outpatient (REF) | payer OTHER, SELFPAY ==
[2025-07-01 10:28] LABS: MANUAL DIFF FLAG NO
[2025-07-01 10:42] LABS: Hematocrit 43.8 % (42.0-52.0); Hemoglobin 15.1 g/dl (14.0-18.0); Imm Gran Abs Auto 0.02 X10*3/uL (0.00-0.03); Imm Gran Pct Auto 0.3 % (0.0-0.4); Lymphocytes Absolute Auto 2.3 X10*3/uL (1.2-4.9); Mean Corpuscular HGB Conc 34.5 g/dl (31.0-36.0); Mean Corpuscular Hemoglobin 30.2 pg (27.0-33.0); Mean Corpuscular Volume 87.6 fL (80.0-98.0); NRBC Abs Auto 0.000 X10*3/uL (0.0-0.012); NRBC Pct Auto 0.0 /100WBC (0.0-0.2); Platelet Count 203 X10*3/uL (160-400); Red Blood Count 5.00 X10*6/uL (4.60-5.80); White Blood Count 7.1 X10*3/uL (4.8-10.8)
[2025-07-01 11:19] LABS: Alanine Aminotransferase 60 U/L (0-40); Albumin Level 4.5 g/dL (3.5-5.0); Alkaline Phosphatase 54 U/L (39-117); Anion Gap 11 (12-20); Aspartate Amino Transferase 42 U/L (5-37); Blood Urea Nitrogen 16 mg/dL (9-16); Calcium 9.4 mg/dL (8.4-10.2); Carbon Dioxide 27 mmol/L (22-29); Chloride 106 mmol/L (96-108); Cholesterol 193 mg/dL (<200); Estimated Glomerular Filt Rate > 60; HDL Cholesterol 47 mg/dL (>40); Potassium 4.3 mmol/L (3.3-5.1); Sodium 140 mmol/L (135-145); Total Protein 7.0 g/dL (6.5-8.0); Triglycerides 58 mg/dL (<150)
== END 2025-07-01 07:55 | disposition home or self-care (01) ==
LOC: HO.HMGCLDS 07:54
PROVIDERS: Visit Provider Internal Medicine
DX: Z13.220 Encounter for screening for lipoid disorders (principal); Z13.6 Encounter for screening for cardiovascular disorders; E16.2 Hypoglycemia, unspecified; E55.9 Vitamin D deficiency, unspecified
CPT/HCPCS: 36415; 80053; 80061; 82306; 85025

== ENCOUNTER 2025-07-12 13:45 | Outpatient (AMB) | payer OTHER, SELFPAY ==
--- NOTE | 2025-07-12 13:48 | MHC.OFFWIV ---
Intake Vital Signs 07/12/25 13:50 Height 6 ft 2 in Weight 265 lb BMI 34.0 BP 106/68 Blood Pressure Location Rt brachial Position Sitting Pulse 78 Pulse Source Pulse Oximeter Temp 98.2 F Temp Source Oral Pulse Oximetry (%) 97 Oxygen Delivery Method Room Air Intake Visit Reasons: EP Pulled hamstring? Intake Note: pt presents with RT hamstring pain x1 day Patient Tobacco Use Status: Never used Tobacco Allergies No Known Allergies Allergy (Verified 07/12/25 13:51) Medication List - Last Reconciled 07/12/25 by John Vyas MD famotidine 20 mg PO BEDTIME ketoconazole 2% 1 appl topical BID magnesium 1 tab PO DAILY multivitamin 1 tab PO DAILY omeprazole 20 mg PO DAILY vitamin E (dl, acetate) 450 mg PO DAILY Do you need a note to return to daycare/school/sports/work: No HPI EP Pulled hamstring? HPI Details History of Present Illness The patient is a 59-year-old male presenting with right-side hip and leg pain. 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 - Pain began the previous day after the activity. - The patient described a specific movement which involved slipping foot and hip to straighten a trunk, after which the pain started. - Pain radiates from the gluteal region down to the inside of the knee. - Pain is exacerbated by sitting down and stepping off a curb. - The patient has applied ice and heat for relief and has taken Tylenol; effectiveness was not explicitly discussed. - Patient reports the pain more when sitting but denies pain while standing and lifting. Medical History: - rash right leg Medications: - Tylenol: Taken for pain relief following the onset of current symptoms. - Famotidine: For gastrointestinal issues (acid reduction). - Omeprazole: For gastrointestinal issues (acid reduction). Social History: - Self-employed: Allows the patient some flexibility in managing work responsibilities and taking time off if needed.. Problem List - Right-side hip and leg pain - rash right leg Patient Instructions - Apply ice and heat to the affected area. - Take prescribed medication with food. Diclofenac 75 b.i.d. with food - Rest and take it easy for a few days. - follow-up with PCP Review of Systems - General: No fever no chills - Neurological: No headaches no dizziness - Ear nose throat: No sore throat no hearing difficulty no ear pain - Cardiovascular: No syncope, no chest pain, no palpitations - Gastrointestinal: No nausea vomiting or diarrhea Physical Exam General: No acute distress HEENT: No acute findings Neck: Supple Respiratory system: Able to talk in full sentences, no audible wheeze Gastrointestinal: No pain Extremities: Pain in the right buttock radiating down to the inside of the knee, worsens with sitting, no pain on standing or lifting, no limping observed 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 [facility] Medical History DICK on CPAP Obesity Transaminitis Inflamed sebaceous cyst (12/24/22) Diverticulosis Aneurysm Nonalcoholic steatohepatitis (ROOT) Surgical History History of resection of rib History of appendectomy History of repair of right rotator cuff Hx of colonoscopy History of knee replacement Social History Are you a primary nurse behavioral health care to a significant other at home: No Do you presently have visiting nurse or other home services: No Alcohol intake: current Alcohol intake frequency: holidays/special occasions only Patient Tobacco Use Status: Never used Tobacco Substance Use Type: Marijuana Current occupational status: employed 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, 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 Physical Exam Vital Signs: Last Vital Signs Temp 98.2 F 07/12/25 13:50 Pulse 78 07/12/25 13:50 BP 106/68 07/12/25 13:50 Pulse Ox 97 07/12/25 13:50 Oxygen Delivery Method Room Air 07/12/25 13:50 BMI result Body Mass Index 34.0 Assessment & Plan Assessment & Plan (1) Right hamstring muscle strain: Code(s): S76.311A - Strain of muscle, fascia and tendon of the posterior muscle group at thigh level, right thigh, initial encounter (2) Rash: Code(s): R21 - Rash and other nonspecific skin eruption Plan History of Present Illness The patient is a 59-year-old male presenting with right-side hip and leg pain. 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 - Pain began the previous day after the activity. - The patient described a specific movement which involved slipping foot and hip to straighten a trunk, after which the pain started. - Pain radiates from the gluteal region down to the inside of the knee. - Pain is exacerbated by sitting down and stepping off a curb. - The patient has applied ice and heat for relief and has taken Tylenol; effectiveness was not explicitly discussed. - Patient reports the pain more when sitting but denies pain while standing and lifting. Medical History: - rash right leg Medications: - Tylenol: Taken for pain relief following the onset of current symptoms. - Famotidine: For gastrointestinal issues (acid reduction). - Omeprazole: For gastrointestinal issues (acid reduction). Social History: - Self-employed: Allows the patient some flexibility in managing work responsibilities and taking time off if needed.. Problem List - Right-side hip and leg pain - rash right leg Patient Instructions - Apply ice and heat to the affected area. - Take prescribed medication with food. Diclofenac 75 b.i.d. with food - Rest and take it easy for a few days. - follow-up with PCP Medications: New diclofenac sodium take it with food 75 mg PO BID 10 days 20 tabs 0RF pain diclofenac sodium take it with food 75 mg PO BID 20 tabs 0RF pain 10 days Refilled ketoconazole 2% 1 appl topical BID 60 grams 0RF Coding Level of Care Code Est Pt Level 3 (07548) Diagnoses Right hamstring muscle strain S76.311A Rash R21
[2025-07-12 13:50] VITALS: BP 106/68; PULSE 78; TEMP 36.8; O2SAT 97; BMI 34.0
== END 2025-07-12 14:12 | disposition home or self-care (01) ==
PROVIDERS: Visit Provider Internal Medicine
DX: S76.311A Strain of muscle, fascia and tendon of the posterior muscle group at thigh level, right thigh, initial encounter (principal); R21 Rash and other nonspecific skin eruption

== ENCOUNTER 2025-07-19 11:49 | Outpatient (REF) | payer OTHER, SELFPAY ==
[2025-07-19 13:49] LABS: Total Hemoglobin (HGBA1C) 3839.3287 umol/L
[2025-07-25 16:09] LABS: IGF-1 (Somatomedin C) 132 ng/mL (41-279); IGF-1 Z Score (Male) 0.0 SD (-2.0 - +2.0)
== END 2025-07-19 11:50 | disposition home or self-care (01) ==
LOC: HO.HMGCLDS 11:49
PROVIDERS: PCP Student in an Organized Health Care Education/Training Program; Visit Provider Student in an Organized Health Care Education/Training Program
DX: E16.2 Hypoglycemia, unspecified (principal)
CPT/HCPCS: 36415; 82533; 83036; 83525; 84305; 84681

== ENCOUNTER 2025-08-08 15:06 | Outpatient (AMB) | payer OTHER, SELFPAY ==
--- NOTE | 2025-08-08 15:49 | AM.OFFWIN_ITS ---
Intake Vital Signs 08/08/25 15:53 Height 6 ft 2 in Weight 267 lb BMI 34.3 BP 110/78 Blood Pressure Location Lt brachial Position Sitting Pulse 72 Pulse Source Pulse Oximeter Pulse Oximetry (%) 98 Intake Visit Reasons: EP-rt leg [phone] Intake Note: pt is here for rt leg hamstring issue, ongoing since last seen in june Patient Tobacco Use Status: Never used Tobacco Allergies No Known Allergies Allergy (Verified 08/08/25 15:53) Do you need a note to return to daycare/school/sports/work: No HPI HPI Comments History of Present Illness Details 59 y/o Male patient who presents to the walk in clinic with c/o right Hamstring pain - pain more when sitting but denies pain while standing and lifting. He has applied ice and heat for relief and has taken Tylenol and Diclofenac with no relief. Pt asking if he could have MRI done. He saw his PCP 2 weeks ago, but she wanted Patient to wait 2 more weeks before ordering it. [facility] Medical History DICK on CPAP Obesity Transaminitis Inflamed sebaceous cyst (12/24/22) Diverticulosis Aneurysm Nonalcoholic steatohepatitis (ROOT) Surgical History History of resection of rib History of appendectomy History of repair of right rotator cuff Hx of colonoscopy History of knee replacement Social History Are you a primary career development coordinator/teacher to a significant other at home: No Do you presently have visiting nurse or other home services: No Alcohol intake: current Alcohol intake frequency: holidays/special occasions only Patient Tobacco Use Status: Never used Tobacco Substance Use Type: Marijuana Current occupational status: employed 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, 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 Review of Systems Const All systems reviewed & are unremarkable except as noted in HPI and below Physical Exam Vital Signs: Last Vital Signs Pulse 72 08/08/25 15:53 BP 110/78 08/08/25 15:53 Pulse Ox 98 08/08/25 15:53 BMI result Body Mass Index 34.3 Const Orientation/consciousness: patient oriented x3 Back/Spine/Pelvis Back: back tenderness Thoracic/Lumbar Spine: paraspinal muscle tenderness and lumbar spinal tenderness Neuro General: patient oriented x3, gait normal and moves all extremities Extrem Right lower extremity: full ROM, hip/thigh Details: normal to inspection, tenderness Location: of the hip Location: laterally and normal ROM; no swelling, no abrasions, no lacerations, no ecchymosis and no crepitus and lower leg Details: no edema; no erythema and no tenderness Psych Speech and movement: Normal speech and movement present Assessment & Plan Assessment & Plan (1) Right hamstring muscle strain: Code(s): S76.311A - Strain of muscle, fascia and tendon of the posterior muscle group at thigh level, right thigh, initial encounter Qualifiers: Encounter type: subsequent encounter Qualified Code(s): S76.311D - Strain of muscle, fascia and tendon of the posterior muscle group at thigh level, right thigh, subsequent encounter Plan: Ordered Flexeril Ordered Diclofenac Ice/Heat and rest F/U with PCP. Medications: New cyclobenzaprine 10 mg PO BEDTIME 14 tabs 0RF S76.311D - Strain of muscle, fascia and tendon of the posterior muscle group at thigh level, right thigh, subsequent encounter Refilled diclofenac sodium take it with food 75 mg PO BID 20 tabs 0RF pain 10 days S76.311D - Strain of muscle, fascia and tendon of the posterior muscle group at thigh level, right thigh, subsequent encounter Coding Level of Care Code Est Pt Level 4 (72941) Diagnoses Strain of right hamstring muscle, subsequent encounter S76.311D Encounter type: subsequent encounter Time Spent (min) 20
[2025-08-08 15:53] VITALS: BP 110/78; PULSE 72; O2SAT 98; BMI 34.3
== END 2025-08-08 16:20 | disposition home or self-care (01) ==
PROVIDERS: PCP Student in an Organized Health Care Education/Training Program; Visit Provider Nurse Practitioner Family
DX: S76.311D Strain of muscle, fascia and tendon of the posterior muscle group at thigh level, right thigh, subsequent encounter (principal)

== ENCOUNTER 2025-08-17 13:36 | Outpatient (REF) | payer OTHER, SELFPAY ==
--- NOTE | ~2025-08-17 | XR_ITS ---
EXAMINATION: XR KNEE 1-2 VIEWS RIGHT HISTORY: STRAIN OF MUSCLE, RIGHT THIGH LEVEL COMPARISON: There are no prior studies available for comparison. FINDINGS: AP and lateral views of the right knee are submitted. Osseous mineralization is normal. There is no fracture or dislocation. The joint spaces are preserved. There are small osteophytes off the patella.. The soft tissues are unremarkable. There is no joint effusion. XR/XR knee RT 2V IMPRESSION: Mild degenerative changes of the patellofemoral compartment. Electronically signed by: Zana Virgen MD 08/17/2025 02:10 PM EDT
--- NOTE | ~2025-08-17 | XR_ITS ---
EXAMINATION: XR LUMBAR SPINE 2-3 VIEWS HISTORY: STRAIN OF MUSCLE, RIGHT THIGH LEVEL COMPARISON: There are no prior studies for comparison. FINDINGS: AP, lateral, and coned down views of the lumbar spine are submitted. Osseous mineralization is normal. Five nonrib-bearing lumbar vertebral bodies are identified, maintaining normal height and alignment without evidence of fracture or spondylolisthesis. There is mild degenerative disc disease of the lower lumbar spine with disc space narrowing and osteophyte formation. There is osteoarthritis of the facet joints. The visualized paraspinal soft tissues are unremarkable. XR/XR lumbar spine 2-3V IMPRESSION: Degenerative changes of the lumbar spine as described. Electronically signed by: Zana Virgen MD 08/17/2025 02:12 PM EDT
--- NOTE | ~2025-08-17 | XR_ITS ---
EXAMINATION: XR HIP 2 OR MORE VIEWS RIGHT HISTORY: STRAIN MUSCLE. RIGHT THIGH LEVEL COMPARISON: There are no prior studies available for comparison. FINDINGS: Two views of the right hip are submitted. Osseous mineralization is normal. There is no fracture or dislocation. The joint space is maintained. The soft tissues are unremarkable. XR/XR hip RT min 2V IMPRESSION: Unremarkable examination of the right hip. Electronically signed by: Zana Virgen MD 08/17/2025 02:09 PM EDT
== END 2025-08-17 13:37 | disposition home or self-care (01) ==
LOC: HO.HMGCX 13:36
PROVIDERS: Visit Provider Internal Medicine
DX: S76.311A Strain of muscle, fascia and tendon of the posterior muscle group at thigh level, right thigh, initial encounter (principal); X58.XXXA Exposure to other specified factors, initial encounter
CPT/HCPCS: 72100; 73502; 73560

== ENCOUNTER → 2025-08-17 14:04 | Outpatient (BNV) | payer OTHER, SELFPAY | PROVIDERS: Visit Provider Radiology Diagnostic Radiology | DX: M47.816 Spondylosis without myelopathy or radiculopathy, lumbar region (principal); S76.011A Strain of muscle, fascia and tendon of right hip, initial encounter; M17.11 Unilateral primary osteoarthritis, right knee | CPT/HCPCS: 72100; 73502; 73560 ==

== ENCOUNTER 2025-10-11 07:18 | Outpatient (REF) | payer OTHER, SELFPAY ==
--- OUTSIDE RECORDS SUMMARY | 2014-05-27 08:00 | XMS_ITS | Continuity of Care Document ---
Author Organization [facility] Address [address] [place] [address] Phone Care Team Providers Care Feather Drying Machine Operator Name Role Phone Javon Monreal MD Unavailable Unavailable Procedures Procedure Date HEART SCAN (CALCIUM SCORE) Advance Directives Directive Yes / No Effective Date File Name No Information Encounters Encounter Description Practice Location Reason(s) For Visit Diagnoses Date Provider Providers Copied on Encounter [facility], [address] [place], [place] [address], [id number], tel:[phone] Fabián [facility] No Information 4 Jocelin Alejandro. [address], [address], [place], [id number] , [place]. tel:[phone] Referring Provider: Jose Guadalupe Corea, [address], [place], [address]. tel:[phone] Family History Family Member Type Diagnosis Age At Onset No Information Payers Payer name Insurance type Covered alliance party ID Authoriza tion(s) No Information Social History Type Description Quantity Date Captured Comments Alcohol Use Details Unknown Caffeine Use Details Unknown Tobacco Use Status No Information Smoking Status No Information Sex Male Chief Complaint And Reason For Visit No Information Reason For Referral Reason For Referral No Information History Of Present Illness Encounter Date Complaint History Of Prese nt Illness No Information Functional Status Date Functional Assessmen t No Information Instructions Date Instruction Additional Infor mation No Information Assessments Type Assessment Date No Information Patient Care Teams Name Effective Dates (start - stop) Status Members No Information
--- NOTE | ~2025-10-11 | MR_ITS ---
EXAMINATION: MRI FEMUR WITHOUT CONTRAST, RIGHT CLINICAL INFORMATION: Hamstring pain COMPARISON: X-ray 08/17/2025 TECHNIQUE: MRI of the hip without contrast is performed in a 1.5 Hope high-field scanner. Multiplanar multisequence imaging FINDINGS: MUSCLES/TENDONS: There is increased T2 signal in the common hamstring tendon origin/proximal tendon, involving a length approximately 4.7 cm craniocaudal. Findings are consistent with moderate-severe tendinosis/partial tearing. No tendon retraction is identified. There is mild edema in the underlying ischial tuberosity. The right gluteus minimus and gluteus medius tendons are intact. No abnormal muscle edema or muscle tear is otherwise seen. Distally, the quadriceps tendon is intact. Small joint fluid BONE/JOINTS: Mild edema in the ischial tuberosity, likely reactive to the tendon abnormality. Otherwise, in the visualized femur, no edema is seen to suggest significant osseous contusion or stress reaction. No fracture plane is identified. Anatomic articulation of the hip joint. No hip joint effusion. There is patellofemoral arthritis, incompletely evaluated. No aggressive marrow replacing lesion. Additional findings: No significant subcutaneous edema or fluid collections. Nonspecific subcentimeter lymph nodes in the right groin.. MR/MR femur RT wo con IMPRESSION: 1. Moderate-severe tendinosis/partial tearing of the common hamstring tendon origin/proximal tendon, involving a length of approximately 4.7 cm craniocaudal. 2. No evidence of acute osseous abnormality. 3. Patellofemoral arthritis. Electronically signed by: Myles Callahan MD 10/12/2025 10:55 AM EST
== END 2025-10-11 07:19 | disposition home or self-care (01) ==
LOC: HO.MRI 07:18
PROVIDERS: Visit Provider Registered Nurse
DX: S76.311A Strain of muscle, fascia and tendon of the posterior muscle group at thigh level, right thigh, initial encounter (principal)
CPT/HCPCS: 73718

== ENCOUNTER → 2025-10-11 07:24 | Outpatient (BNV) | payer OTHER, SELFPAY | PROVIDERS: Visit Provider Radiology Diagnostic Ultrasound | DX: S76.311A Strain of muscle, fascia and tendon of the posterior muscle group at thigh level, right thigh, initial encounter (principal); M22.2X1 Patellofemoral disorders, right knee | CPT/HCPCS: 73718 ==